=== PATIENT | female | born 1960 | race Caucasian/White ===

== ENCOUNTER 2017-09-30 08:16 | Day surgery (SDC) | payer MEDICARE ==
[~2017-09-30] VITALS: Ht 170.2 cm; Wt 114.5 kg
[~2017-09-30 08:16] MED LIST: ALLO100T30 PO; ASCO100019 PO; ASPI-614 PO; AZIT1PAC9 PO; CARV12.52 PO; CHOL5000 PO; FURO-92 PO; GABA600T14 PO; HYDR-3307 PO; LISI-167 PO; METH500T7 PO; MULT1CAP19 PO; NEBULIZER INH; PRAV40TA2 PO; SAXA1TBM3 PO; TUMERIC CURCUMIN PO
[2017-09-30] MEDS ORDERED: CARV-39 PO (08:46)
[2017-09-30] MEDS ORDERED: SODIUM CHLORIDE 0.9% 1,000 ML IV SCH (09:00)
[2017-09-30] MEDS ORDERED: CYAN25009 PO (09:01)
[2017-09-30] MEDS ORDERED: FLUT1BLS INH (09:01)
[2017-09-30] MEDS ORDERED: HYDR20TA19 PO (09:01)
[2017-09-30] MEDS ORDERED: NALO25TA PO (09:01)
[2017-09-30] MEDS ORDERED: LOVA40TA2 PO (09:01)
[2017-09-30] MEDS ORDERED: GLIP10TA13 PO (09:01)
[2017-09-30] MEDS ORDERED: FOLI-17 PO (09:01)
[2017-09-30] MEDS ORDERED: METF500T4 PO (09:01)
== END 2017-09-30 11:52 ==
LOC: CACL 08:16
PROVIDERS: ATTEND Internal Medicine Cardiovascular Disease
DX: I34.0 Nonrheumatic mitral (valve) insufficiency (principal); I27.20 Pulmonary hypertension, unspecified; Z88.6 Allergy status to analgesic agent; I10 Essential (primary) hypertension; I50.22 Chronic systolic (congestive) heart failure
CPT/HCPCS: 93312; 93321; 93325

== ENCOUNTER → 2017-10-15 | Outpatient (CLI) | payer MEDICARE ==
[~2017-10-15] MED LIST changes: +CARV-39 PO; +CYAN25009 PO; +FLUT1BLS INH; +FOLI-17 PO; +GLIP10TA13 PO; +HYDR20TA19 PO; +LOVA40TA2 PO; +METF500T4 PO; +NALO25TA PO
[2017-10-15 15:26] LABS: HEMATOCRIT 38.3 % (34.6-47.8); HEMOGLOBIN 12.3 g/dL (11.7-16.4); WHITE BLOOD COUNT 10.7 x10^3/uL (3.4-10)
== END | disposition home or self-care (01) ==
LOC: LAB 15:03
PROVIDERS: ATTEND Podiatrist Foot & Ankle Surgery
DX: L03.115 Cellulitis of right lower limb (principal); M86.171 Other acute osteomyelitis, right ankle and foot
CPT/HCPCS: 36415; 85025; 85651; 86140

== ENCOUNTER → 2017-11-06 | Outpatient (CLI) | payer MEDICARE ==
[~2017-11-06] MED LIST changes: +[UNRECOGNIZED DRUG - OTHER] INH
[2017-11-06 15:07] LABS: INTERNATIONAL NORMALIZED RATIO 1.06 (0.93-1.1)
[2017-11-06 15:13] LABS: ANION GAP 9 mmol/L (5-15); CALCIUM 8.9 mg/dL (8.5-10.1); CHLORIDE 105 mmol/L (98-107)
== END ==
LOC: STAR 13:43
PROVIDERS: ATTEND Internal Medicine Cardiovascular Disease
DX: Z01.818 Encounter for other preprocedural examination (principal); I10 Essential (primary) hypertension; I36.1 Nonrheumatic tricuspid (valve) insufficiency; E78.5 Hyperlipidemia, unspecified; Z87.891 Personal history of nicotine dependence; E11.9 Type 2 diabetes mellitus without complications
CPT/HCPCS: 36415; 80048; 83880; 85610

== ENCOUNTER 2017-11-10 10:16 | Day surgery (SDC) | payer MEDICARE ==
[2017-11-06 14:14] VITALS: BP 115/69
[~2017-11-10] VITALS: Ht 170.2 cm; Wt 114.5 kg
[2017-11-10] MEDS ORDERED: DIPHENHYDRAMINE 50 MG/ML, 1ML IVPush ONE (12:30)
[2017-11-10] MEDS ORDERED: MIDAZOLAM 1 MG/ML, 5ML ONE (12:40)
[2017-11-10] MEDS ORDERED: FENTANYL PF 100 MCG/2ML ONE (12:40)
[2017-11-10] MEDS ORDERED: LIDOCAINE 2%, 20ML ONE (12:41)
[2017-11-10] MEDS ORDERED: SODIUM CHLORIDE 0.9% IV PRN (13:30)
[2017-11-10] MEDS ORDERED: ADENOSINE IV PRN (13:30)
== END 2017-11-10 18:03 | disposition home or self-care (01) ==
LOC: CACL 10:16 → 5SO 17:35 → CACL 18:03
PROVIDERS: ATTEND Internal Medicine Cardiovascular Disease
DX: I27.0 Primary pulmonary hypertension (principal); Z79.82 Long term (current) use of aspirin; Z87.891 Personal history of nicotine dependence; E66.01 Morbid (severe) obesity due to excess calories; J44.9 Chronic obstructive pulmonary disease, unspecified
CPT/HCPCS: 93451; 93463; 99156; 99157; C1769; C1894; G0378; J1200; J2250; J3010; J3490

== ENCOUNTER 2018-02-10 18:11 | Inpatient (IN) | payer MEDICARE ==
[~2018-02-10] VITALS: Ht 170.2 cm; Wt 110.9 kg
[2018-02-10 18:47] LABS: BASOPHILS # (AUTO) 0.03 x10^3/uL (0-0.1); BASOPHILS % (AUTO) 1 % (0-1); EOSINOPHILS # (AUTO) 0.12 x10^3/uL (0-0.4); EOSINOPHILS % (AUTO) 2 % (1-7); LYMPHOCYTES # (AUTO) 0.52 x10^3/uL (1-3.4); LYMPHOCYTES % (AUTO) 8 % (22-44); MD NO; MEAN CORPUSCULAR HEMOGLOBIN 31.6 pg (27.0-34.8); MEAN CORPUSCULAR VOLUME 98.5 fL (80-100); MEAN PLATELET VOLUME 8.4 fL (7.4-10.4); MONOCYTES # (AUTO) 0.56 x10^3/uL (0.2-0.8); MONOCYTES % (AUTO) 8 % (2-9); NEUTROPHILS # (AUTO) 5.55 x10^3/uL (1.8-6.8); NEUTROPHILS % (AUTO) 82 % (42-75); PLATELET COUNT 223 x10^3/uL (130-400); RED BLOOD COUNT 2.82 x10^6/uL (3.82-5.3); RED CELL DISTRIBUTION WIDTH 19.4 % (9.6-15.2)
[2018-02-10 18:58] LABS: ALBUMIN 3.1 g/dL (3.4-5.0); ANION GAP 11 mmol/L (5-15); CALCIUM 8.3 mg/dL (8.5-10.1); CHLORIDE 114 mmol/L (98-107); CREATININE 4.86 mg/dL (0.55-1.02)
[2018-02-10 19:06] LABS: TROPONIN I 0.164 ng/mL (0.000-0.045)
[2018-02-10] MEDS ORDERED: ALBU18HF INH (19:21)
[2018-02-10] MEDS ORDERED: ASPIRIN 81 MG TABLET CHEW PO ONE (19:30)
[2018-02-10] MEDS ORDERED: FUROSEMIDE 40 MG/4 ML IVPush ONE (19:30)
[2018-02-10] MEDS ORDERED: UMEC62.5 INH (19:32)
[2018-02-10] MEDS ORDERED: TADA20TA33 PO (19:32)
[2018-02-10] MEDS ORDERED: CARV12.52 PO (19:32)
[2018-02-10] MEDS ORDERED: ASPIRIN 81 MG TABLET CHEW ONE (20:11)
[2018-02-10] MEDS ORDERED: FUROSEMIDE 20 MG/2 ML ONE (20:11)
[2018-02-10] MEDS ORDERED: POLYETHYLENE GLYCOL 17 GM PACKET PO PRN (20:30)
[2018-02-10] MEDS: FUROSEMIDE 20 MG/2 ML IV SCH (20:30)
[2018-02-10] MEDS ORDERED: BISACODYL 10 MG SUPP PR PRN (20:30)
[2018-02-10] MEDS ORDERED: ACETAMINOPHEN 325 MG TABLET PO PRN (20:30)
[2018-02-10 21:06] LABS: HEMOGLOBIN A1C 6.2 % (4.2-6.3)
[2018-02-10 21:15] VITALS: BP 109/74
[2018-02-10] MEDS ORDERED: ALBUTEROL/IPRATROPIUM 2.5MG/0.5MG, 3 ML NPPB PRN (21:30)
[2018-02-10] MEDS: LOVASTATIN 40 MG TABLET PO SCH (21:50)
[2018-02-10] MEDS: SODIUM CHLORIDE FLUSH 10ML SYR IVF SCH (21:50)
[2018-02-10] MEDS: HEPARIN 5,000 UNITS/ML, 1ML SQ SCH (21:50)
[2018-02-10] MEDS: GABAPENTIN 300 MG CAPSULE PO SCH (21:51)
[2018-02-10] MEDS: CARVEDILOL 12.5 MG TABLET PO SCH (21:51)
[2018-02-10] MEDS: INSULIN LISPRO 100 UNITS/ML, PEN SQ-INSULIN SCH (21:51)
[2018-02-10] MEDS: HYDROcodone/APAP 10/325 MG TABLET PO PRN (22:33)
[2018-02-11] VITALS (11 sets, daily range): BP systolic 81–111; BP diastolic 46–74
[2018-02-11 00:45] LABS: TROPONIN I 0.174 ng/mL (0.000-0.045)
[2018-02-11] MEDS: HEPARIN 5,000 UNITS/ML, 1ML SQ SCH ×3 (04:53→20:30)
[2018-02-11 06:45] LABS: MEAN CORPUSCULAR HEMOGLOBIN 30.8 pg (27.0-34.8); MEAN CORPUSCULAR HGB CONC 31.6 g/dL (32.4-35.8); MEAN CORPUSCULAR VOLUME 97.7 fL (80-100); MEAN PLATELET VOLUME 8.1 fL (7.4-10.4); PLATELET COUNT 222 x10^3/uL (130-400); RED BLOOD COUNT 2.63 x10^6/uL (3.82-5.3); RED CELL DISTRIBUTION WIDTH 19.4 % (9.6-15.2)
[2018-02-11 06:48] LABS: ALANINE AMINOTRANSFERASE 16 U/L (12-78); ALBUMIN 2.8 g/dL (3.4-5.0); ANION GAP 9 mmol/L (5-15); CHLORIDE 116 mmol/L (98-107); CREATININE 4.88 mg/dL (0.55-1.02)
[2018-02-11 07:12] LABS: MD YES
[2018-02-11 07:13] LABS: BASOS#(MANUAL) 0.07 x10^3/uL (0-0.1); BASOS% (MANUAL) 1 % (0-1); EOS#(MANUAL) 0.34 x10^3/uL (0.0-0.4); EOS% (MANUAL) 5 % (1-7); LYMPH#(MANUAL) 0.94 x10^3/uL (1-3.4); LYMPHS% (MANUAL) 14 % (22-44); MONOS% (MANUAL) 6 % (2-9); SEG#(MANUAL) 4.96 x10^3/uL (1.8-6.8); SEGS% (MANUAL) 74 % (42-75)
[2018-02-11 07:14] LABS: ALKALINE PHOSPHATASE 98 U/L (45-117); ANISOCYTOSIS 1+; BILIRUBIN,TOTAL 0.6 mg/dL (0.2-1.0); TOTAL PROTEIN 6.7 g/dL (6.4-8.2); TROPONIN I 0.165 ng/mL (0.000-0.045)
[2018-02-11 07:15] LABS: <PLATELET ESTIMATE> ADEQUATE; POLYCHROMASIA 1+
[2018-02-11 07:16] LABS: LARGE PLATELETS 1+
[2018-02-11] MEDS: IPRATROPIUM 0.5 MG/2.5 ML INHA NPPB SCH ×4 (07:16→21:00)
[2018-02-11] MEDS: INSULIN LISPRO 100 UNITS/ML, PEN SQ-INSULIN SCH ×4 (07:42→20:33)
[2018-02-11] MEDS: FUROSEMIDE 20 MG/2 ML IV SCH (07:48)
[2018-02-11] MEDS ORDERED: HEPARIN 5,000 UNITS/ML, 1ML SQ SCH (08:30)
[2018-02-11] MEDS: ASPIRIN 81 MG TABLET CHEW PO SCH (08:30)
[2018-02-11] MEDS: FOLIC ACID 1 MG TABLET PO SCH (08:31)
[2018-02-11] MEDS: ASCORBIC ACID 500 MG TABLET PO SCH (08:31)
[2018-02-11] MEDS: GABAPENTIN 300 MG CAPSULE PO SCH ×2 (08:31→20:31)
[2018-02-11] MEDS: ACETAMINOPHEN 325 MG TABLET PO SCH ×3 (08:31→20:30)
[2018-02-11] MEDS: CYANOCOBALAMIN 1,000 MCG TABLET PO SCH (08:31)
[2018-02-11] MEDS: SENNA/DOCUSATE TABLET PO SCH (08:32)
[2018-02-11] MEDS: SODIUM CHLORIDE FLUSH 10ML SYR IVF SCH ×2 (08:33→20:33)
[2018-02-11] MEDS: CARVEDILOL 12.5 MG TABLET PO SCH ×3 (08:38→22:27)
[2018-02-11] MEDS ORDERED: TADA20TA33 PO (08:55)
[2018-02-11] MEDS ORDERED: SODIUM CHLORIDE 77 MEQ in DEXTROSE 10% 1,000 ML IV SCH (09:00)
[2018-02-11] MEDS ORDERED: CHOLECALCIFEROL 1,000 UNIT TABLET PO SCH (09:00)
[2018-02-11 10:05] LABS: ANION GAP 11 mmol/L (5-15); CALCIUM 8.1 mg/dL (8.5-10.1); CHLORIDE 114 mmol/L (98-107); CREATININE 4.89 mg/dL (0.55-1.02); IRON LEVEL 36 mcg/dL (50-170)
[2018-02-11 10:26] LABS: HEMOGLOBIN A1C 5.9 % (4.2-6.3)
[2018-02-11 10:29] LABS: CALCIUM 8.1 mg/dL (8.5-10.1)
[2018-02-11 10:32] LABS: % IRON SATURATION 12 % (20-55); TOTAL IRON BINDING CAPACITY 290 mcg/dL (250-450)
[2018-02-11 10:36] LABS: FOLATE LEVEL > 20.0 ng/mL (3.1-17.5)
[2018-02-11 10:37] LABS: ABSOLUTE RETICS # 0.032 x10^6/uL (0.5-2.5); RED BLOOD COUNT 2.87 x10^6/uL (3.82-5.3); RETICULOCYTE COUNT % 1.12 % (0.5-1.5)
[2018-02-11 10:45] LABS: % IRON SATURATION 13 % (20-55); IRON LEVEL 36 mcg/dL (50-170)
[2018-02-11] MEDS ORDERED: INSULIN LISPRO 100 UNITS/ML, PEN LOW DOSE SS SQ-INSULIN SCH (11:00)
[2018-02-11 11:09] LABS: TOTAL IRON BINDING CAPACITY 287 mcg/dL (250-450)
[2018-02-11 12:15] LABS: CHLORIDE,URINE RANDOM 55 mmol/L; POTASSIUM,URINE RANDOM 41 mmol/L; SODIUM,URINE RANDOM 33 mmol/L
[2018-02-11 12:16] LABS: CHLORIDE,URINE RANDOM 55 mmol/L; POTASSIUM,URINE RANDOM 41 mmol/L; SODIUM,URINE RANDOM 34 mmol/L
[2018-02-11] MEDS: FLUTICASONE/VILANTEROL 200-25MCG/INH INH SCH (12:22)
[2018-02-11 12:39] LABS: OSMOLALITY,URINE 367 mOsm/kg (500-850)
[2018-02-11 12:45] LABS: MICROSCOPIC INDICATED
[2018-02-11 12:46] LABS: CULTURE INDICATED? YES
[2018-02-11] MEDS ORDERED: FUROSEMIDE 40 MG/4 ML IV SCH (17:00)
[2018-02-11] MEDS: FUROSEMIDE 40 MG/4 ML IV SCH (17:56)
[2018-02-11] MEDS: LOVASTATIN 40 MG TABLET PO SCH (20:36)
[2018-02-12] VITALS (7 sets, daily range): BP systolic 79–103; BP diastolic 47–69
[2018-02-12] MEDS: IPRATROPIUM 0.5 MG/2.5 ML INHA NPPB SCH (03:00)
[2018-02-12] MEDS: ACETAMINOPHEN 325 MG TABLET PO SCH ×4 (04:02→20:23)
[2018-02-12] MEDS: HEPARIN 5,000 UNITS/ML, 1ML SQ SCH ×3 (04:15→20:22)
[2018-02-12 05:48] LABS: BASOPHILS # (AUTO) 0.01 x10^3/uL (0-0.1); BASOPHILS % (AUTO) 0 % (0-1); EOSINOPHILS # (AUTO) 0.14 x10^3/uL (0-0.4); EOSINOPHILS % (AUTO) 2 % (1-7); LYMPHOCYTES # (AUTO) 0.48 x10^3/uL (1-3.4); LYMPHOCYTES % (AUTO) 7 % (22-44); MD NO; MEAN CORPUSCULAR HEMOGLOBIN 30.9 pg (27.0-34.8); MEAN CORPUSCULAR HGB CONC 31.3 g/dL (32.4-35.8); MEAN CORPUSCULAR VOLUME 98.6 fL (80-100); MEAN PLATELET VOLUME 8.5 fL (7.4-10.4); MONOCYTES # (AUTO) 0.59 x10^3/uL (0.2-0.8); MONOCYTES % (AUTO) 9 % (2-9); NEUTROPHILS # (AUTO) 5.45 x10^3/uL (1.8-6.8); NEUTROPHILS % (AUTO) 82 % (42-75); PLATELET COUNT 185 x10^3/uL (130-400); RED BLOOD COUNT 2.58 x10^6/uL (3.82-5.3)
[2018-02-12 05:49] LABS: INTERNATIONAL NORMALIZED RATIO 1.24 (0.93-1.1); PROTHROMBIN TIME 12.7 Seconds (9.6-11.5)
[2018-02-12 05:53] LABS: ALANINE AMINOTRANSFERASE 14 U/L (12-78); ALBUMIN 2.7 g/dL (3.4-5.0); ANION GAP 9 mmol/L (5-15); CALCIUM 7.7 mg/dL (8.5-10.1); CHLORIDE 114 mmol/L (98-107); CREATININE 5.02 mg/dL (0.55-1.02)
[2018-02-12 05:55] LABS: ALKALINE PHOSPHATASE 105 U/L (45-117); BILIRUBIN,TOTAL 0.5 mg/dL (0.2-1.0); TOTAL PROTEIN 6.9 g/dL (6.4-8.2)
[2018-02-12] MEDS: INSULIN LISPRO 100 UNITS/ML, PEN SQ-INSULIN SCH ×4 (07:00→20:23)
[2018-02-12] MEDS: FUROSEMIDE 40 MG/4 ML IV SCH ×2 (07:30→18:26)
[2018-02-12] MEDS: ASPIRIN 81 MG TABLET CHEW PO SCH (09:00)
[2018-02-12] MEDS: SENNA/DOCUSATE TABLET PO SCH (09:00)
[2018-02-12] MEDS: IRON SUCROSE COMPLEX 100MG/5ML IV SCH (10:05)
[2018-02-12] MEDS: FLUTICASONE/VILANTEROL 200-25MCG/INH INH SCH (10:08)
[2018-02-12] MEDS: SODIUM CHLORIDE FLUSH 10ML SYR IVF SCH ×2 (10:08→20:22)
[2018-02-12] MEDS: ERGOCALCIFEROL 50,000 UNIT CAPSULE PO SCH (10:11)
[2018-02-12] MEDS: CALCITRIOL 0.25 MCG CAPSULE PO SCH (10:12)
[2018-02-12] MEDS: CYANOCOBALAMIN 1,000 MCG TABLET PO SCH (10:12)
[2018-02-12] MEDS: FOLIC ACID 1 MG TABLET PO SCH (10:13)
[2018-02-12] MEDS: ASCORBIC ACID 500 MG TABLET PO SCH (10:13)
[2018-02-12] MEDS ORDERED: CARVEDILOL 6.25 MG TABLET ONE (10:17)
[2018-02-12] MEDS: CARVEDILOL 6.25 MG TABLET PO SCH ×2 (10:20→20:21)
[2018-02-12] MEDS: DARBEPOETIN 100 MCG/ML SQ SCH (10:20)
[2018-02-12] MEDS: LOVASTATIN 40 MG TABLET PO SCH (20:21)
[2018-02-12] MEDS: GABAPENTIN 300 MG CAPSULE PO SCH (20:22)
[2018-02-13 02:50] VITALS: BP 94/62
[2018-02-13] MEDS: ACETAMINOPHEN 325 MG TABLET PO SCH ×4 (03:32→19:34)
[2018-02-13] MEDS: HEPARIN 5,000 UNITS/ML, 1ML SQ SCH ×3 (04:04→20:18)
[2018-02-13 05:51] LABS: BASOPHILS # (AUTO) 0.03 x10^3/uL (0-0.1); BASOPHILS % (AUTO) 0 % (0-1); MD NO
[2018-02-13 05:54] LABS: ALANINE AMINOTRANSFERASE 14 U/L (12-78); ALBUMIN 2.6 g/dL (3.4-5.0); ANION GAP 9 mmol/L (5-15); CHLORIDE 109 mmol/L (98-107); CREATININE 3.53 mg/dL (0.55-1.02)
[2018-02-13 05:56] LABS: ALKALINE PHOSPHATASE 104 U/L (45-117); BILIRUBIN,TOTAL 0.5 mg/dL (0.2-1.0); TOTAL PROTEIN 6.7 g/dL (6.4-8.2)
[2018-02-13 05:57] LABS: EOSINOPHILS # (AUTO) 0.13 x10^3/uL (0-0.4); EOSINOPHILS % (AUTO) 2 % (1-7); LYMPHOCYTES % (AUTO) 6 % (22-44); MEAN CORPUSCULAR HEMOGLOBIN 31.8 pg (27.0-34.8); MEAN CORPUSCULAR VOLUME 99.3 fL (80-100); MEAN PLATELET VOLUME 8.7 fL (7.4-10.4); MONOCYTES # (AUTO) 0.59 x10^3/uL (0.2-0.8); MONOCYTES % (AUTO) 9 % (2-9); NEUTROPHILS # (AUTO) 5.78 x10^3/uL (1.8-6.8); NEUTROPHILS % (AUTO) 84 % (42-75); PLATELET COUNT 175 x10^3/uL (130-400); RED BLOOD COUNT 2.55 x10^6/uL (3.82-5.3); RED CELL DISTRIBUTION WIDTH 19.2 % (9.6-15.2)
[2018-02-13 06:37] VITALS: BP 78/46
[2018-02-13] MEDS: INSULIN LISPRO 100 UNITS/ML, PEN SQ-INSULIN SCH ×4 (07:00→20:55)
[2018-02-13 07:38] VITALS: BP 95/59
[2018-02-13] MEDS ORDERED: DOBUTAMINE/D5W PMX 250 ML IV SCH (08:00)
[2018-02-13] MEDS: FUROSEMIDE 40 MG/4 ML IV SCH ×2 (08:54→16:57)
[2018-02-13] MEDS: FLUTICASONE/VILANTEROL 200-25MCG/INH INH SCH (08:56)
[2018-02-13] MEDS: IRON SUCROSE COMPLEX 100MG/5ML IV SCH (08:57)
[2018-02-13] MEDS: SODIUM CHLORIDE FLUSH 10ML SYR IVF SCH ×2 (08:58→20:21)
[2018-02-13] MEDS: ASPIRIN 81 MG TABLET CHEW PO SCH (08:58)
[2018-02-13] MEDS: CARVEDILOL 6.25 MG TABLET PO SCH ×2 (08:58→20:18)
[2018-02-13] MEDS: SENNA/DOCUSATE TABLET PO SCH (09:00)
[2018-02-13] MEDS: DOBUTAMINE/D5W PMX 250 ML IV SCH ×3 (10:12→23:55)
[2018-02-13 14:45] VITALS: BP 128/67
[2018-02-13] MEDS: CYANOCOBALAMIN 1,000 MCG TABLET PO SCH (14:49)
[2018-02-13] MEDS: FOLIC ACID 1 MG TABLET PO SCH (14:49)
[2018-02-13] MEDS: ASCORBIC ACID 500 MG TABLET PO SCH (14:49)
[2018-02-13] MEDS: CALCITRIOL 0.25 MCG CAPSULE PO SCH (14:49)
[2018-02-13 16:54] VITALS: BP 128/78
[2018-02-13 19:12] VITALS: BP 116/70
[2018-02-13] MEDS: GABAPENTIN 300 MG CAPSULE PO SCH (20:18)
[2018-02-13] MEDS: LOVASTATIN 40 MG TABLET PO SCH (20:18)
[2018-02-13] MEDS: ZOLPIDEM 5MG TABLET PO PRN (22:57)
[2018-02-14 01:57] VITALS: BP 104/63
[2018-02-14] MEDS: HEPARIN 5,000 UNITS/ML, 1ML SQ SCH ×3 (05:23→21:26)
[2018-02-14] MEDS: ACETAMINOPHEN 325 MG TABLET PO SCH ×4 (05:25→21:27)
[2018-02-14 05:38] LABS: ALBUMIN 2.6 g/dL (3.4-5.0); ANION GAP 8 mmol/L (5-15); CALCIUM 8.5 mg/dL (8.5-10.1); CHLORIDE 108 mmol/L (98-107)
[2018-02-14 05:39] LABS: CREATININE 2.71 mg/dL (0.55-1.02)
[2018-02-14 05:40] LABS: BASOPHILS # (AUTO) 0.03 x10^3/uL (0-0.1); BASOPHILS % (AUTO) 0 % (0-1); EOSINOPHILS # (AUTO) 0.19 x10^3/uL (0-0.4); EOSINOPHILS % (AUTO) 2 % (1-7); LYMPHOCYTES # (AUTO) 0.64 x10^3/uL (1-3.4); LYMPHOCYTES % (AUTO) 8 % (22-44); MD NO; MEAN CORPUSCULAR HEMOGLOBIN 31.2 pg (27.0-34.8); MEAN CORPUSCULAR HGB CONC 31.6 g/dL (32.4-35.8); MEAN CORPUSCULAR VOLUME 98.8 fL (80-100); MEAN PLATELET VOLUME 8.6 fL (7.4-10.4); MONOCYTES # (AUTO) 0.88 x10^3/uL (0.2-0.8); MONOCYTES % (AUTO) 11 % (2-9); NEUTROPHILS # (AUTO) 6.33 x10^3/uL (1.8-6.8); NEUTROPHILS % (AUTO) 78 % (42-75); PLATELET COUNT 202 x10^3/uL (130-400); RED BLOOD COUNT 2.74 x10^6/uL (3.82-5.3); RED CELL DISTRIBUTION WIDTH 19.5 % (9.6-15.2)
[2018-02-14] MEDS: DOBUTAMINE/D5W PMX 250 ML IV SCH ×3 (06:34→21:24)
[2018-02-14 07:30] VITALS: BP 134/85
[2018-02-14] MEDS: INSULIN LISPRO 100 UNITS/ML, PEN SQ-INSULIN SCH ×4 (07:40→21:27)
[2018-02-14] MEDS: FUROSEMIDE 40 MG/4 ML IV SCH ×2 (07:52→16:49)
[2018-02-14] MEDS ORDERED: DOBUTAMINE/D5W PMX 250 ML IV SCH (10:00)
[2018-02-14] MEDS: FOLIC ACID 1 MG TABLET PO SCH (12:23)
[2018-02-14] MEDS: ASPIRIN 81 MG TABLET CHEW PO SCH (12:23)
[2018-02-14] MEDS: CALCITRIOL 0.25 MCG CAPSULE PO SCH (12:23)
[2018-02-14] MEDS: ASCORBIC ACID 500 MG TABLET PO SCH (12:23)
[2018-02-14] MEDS: CYANOCOBALAMIN 1,000 MCG TABLET PO SCH (12:24)
[2018-02-14] MEDS: SENNA/DOCUSATE TABLET PO SCH (12:24)
[2018-02-14] MEDS: CARVEDILOL 6.25 MG TABLET PO SCH ×2 (12:24→21:26)
[2018-02-14] MEDS: IRON SUCROSE COMPLEX 100MG/5ML IV SCH (12:24)
[2018-02-14] MEDS: SODIUM CHLORIDE FLUSH 10ML SYR IVF SCH ×2 (12:25→21:26)
[2018-02-14 12:26] VITALS: BP 131/83
[2018-02-14] MEDS: FLUTICASONE/VILANTEROL 200-25MCG/INH INH SCH (12:29)
[2018-02-14] MEDS: ONDANSETRON ODT 4 MG PO PRN (13:11)
[2018-02-14] MEDS: HYDROcodone/APAP 10/325 MG TABLET PO PRN (13:11)
[2018-02-14 13:44] VITALS: BP 107/73
[2018-02-14] MEDS: [UNRECOGNIZED DRUG - OTHER] HOMEMEDPO SCH (14:37)
[2018-02-14 20:38] VITALS: BP 96/58
[2018-02-14] MEDS: LOVASTATIN 40 MG TABLET PO SCH (21:27)
[2018-02-14] MEDS: GABAPENTIN 300 MG CAPSULE PO SCH (21:27)
[2018-02-14] MEDS: ZOLPIDEM 5MG TABLET PO PRN (22:56)
[2018-02-15 00:43] VITALS: BP 109/71
[2018-02-15] MEDS: ACETAMINOPHEN 325 MG TABLET PO SCH ×4 (03:08→21:05)
[2018-02-15] MEDS: DOBUTAMINE/D5W PMX 250 ML IV SCH ×3 (03:09→17:52)
[2018-02-15] MEDS: HEPARIN 5,000 UNITS/ML, 1ML SQ SCH ×3 (05:34→21:04)
[2018-02-15 05:39] LABS: BASOPHILS # (AUTO) 0.03 x10^3/uL (0-0.1); BASOPHILS % (AUTO) 0 % (0-1); EOSINOPHILS # (AUTO) 0.21 x10^3/uL (0-0.4); EOSINOPHILS % (AUTO) 3 % (1-7); LYMPHOCYTES # (AUTO) 0.53 x10^3/uL (1-3.4); LYMPHOCYTES % (AUTO) 6 % (22-44); MD NO; MEAN CORPUSCULAR HEMOGLOBIN 30.7 pg (27.0-34.8); MEAN CORPUSCULAR HGB CONC 30.9 g/dL (32.4-35.8); MEAN CORPUSCULAR VOLUME 99.2 fL (80-100); MEAN PLATELET VOLUME 8.2 fL (7.4-10.4); MONOCYTES % (AUTO) 12 % (2-9); NEUTROPHILS # (AUTO) 6.71 x10^3/uL (1.8-6.8); NEUTROPHILS % (AUTO) 79 % (42-75); PLATELET COUNT 215 x10^3/uL (130-400); RED BLOOD COUNT 2.68 x10^6/uL (3.82-5.3); RED CELL DISTRIBUTION WIDTH 19.7 % (9.6-15.2)
[2018-02-15 05:53] LABS: ALBUMIN 2.5 g/dL (3.4-5.0); ANION GAP 7 mmol/L (5-15); CALCIUM 8.8 mg/dL (8.5-10.1); CHLORIDE 106 mmol/L (98-107); CREATININE 2.01 mg/dL (0.55-1.02)
[2018-02-15 06:47] VITALS: BP 122/75
[2018-02-15] MEDS: INSULIN LISPRO 100 UNITS/ML, PEN SQ-INSULIN SCH ×4 (07:00→21:07)
[2018-02-15] MEDS: FOLIC ACID 1 MG TABLET PO SCH (09:00)
[2018-02-15] MEDS: CYANOCOBALAMIN 1,000 MCG TABLET PO SCH (09:00)
[2018-02-15] MEDS: SENNA/DOCUSATE TABLET PO SCH (09:00)
[2018-02-15] MEDS: ASCORBIC ACID 500 MG TABLET PO SCH (09:00)
[2018-02-15] MEDS: [UNRECOGNIZED DRUG - OTHER] HOMEMEDPO SCH (09:00)
[2018-02-15] MEDS: CALCITRIOL 0.25 MCG CAPSULE PO SCH (09:00)
[2018-02-15] MEDS: CARVEDILOL 6.25 MG TABLET PO SCH ×2 (09:08→21:04)
[2018-02-15] MEDS: ONDANSETRON ODT 4 MG PO PRN (10:39)
[2018-02-15] MEDS: FLUTICASONE/VILANTEROL 200-25MCG/INH INH SCH (13:33)
[2018-02-15] MEDS: FUROSEMIDE 40 MG/4 ML IV SCH ×2 (13:38→21:03)
[2018-02-15 13:39] VITALS: BP 121/75
[2018-02-15] MEDS: IRON SUCROSE COMPLEX 100MG/5ML IV SCH (13:39)
[2018-02-15] MEDS: SODIUM CHLORIDE FLUSH 10ML SYR IVF SCH ×2 (13:39→21:05)
[2018-02-15] MEDS: ASPIRIN 81 MG TABLET CHEW PO SCH (13:39)
[2018-02-15 13:50] VITALS: BP 113/72
[2018-02-15] MEDS ORDERED: PROCHLORPERAZINE 5 MG/ML, 2ML IM PRN (14:00)
[2018-02-15 18:47] VITALS: BP 102/63
[2018-02-15] MEDS: GABAPENTIN 300 MG CAPSULE PO SCH (21:04)
[2018-02-15] MEDS: LOVASTATIN 40 MG TABLET PO SCH (21:04)
[2018-02-15 22:20] VITALS: BP 106/57
[2018-02-16] MEDS: ZOLPIDEM 5MG TABLET PO PRN ×2 (00:21→22:16)
[2018-02-16] MEDS: DOBUTAMINE/D5W PMX 250 ML IV SCH ×4 (00:25→21:25)
[2018-02-16 04:01] VITALS: BP 131/83
[2018-02-16] MEDS: ACETAMINOPHEN 325 MG TABLET PO SCH ×4 (04:01→21:10)
[2018-02-16] MEDS: HEPARIN 5,000 UNITS/ML, 1ML SQ SCH ×3 (05:48→21:09)
[2018-02-16 05:53] LABS: ALBUMIN 2.7 g/dL (3.4-5.0); ANION GAP 7 mmol/L (5-15); CALCIUM 8.6 mg/dL (8.5-10.1); CHLORIDE 102 mmol/L (98-107)
[2018-02-16 05:59] LABS: CREATININE 1.85 mg/dL (0.55-1.02)
[2018-02-16] MEDS: INSULIN LISPRO 100 UNITS/ML, PEN SQ-INSULIN SCH ×4 (07:00→21:00)
[2018-02-16 07:40] VITALS: BP 114/75
[2018-02-16] MEDS: FUROSEMIDE 40 MG/4 ML IV SCH ×2 (08:33→17:34)
[2018-02-16] MEDS: IRON SUCROSE COMPLEX 100MG/5ML IV SCH (08:33)
[2018-02-16] MEDS: CALCITRIOL 0.25 MCG CAPSULE PO SCH (08:34)
[2018-02-16] MEDS: FOLIC ACID 1 MG TABLET PO SCH (08:34)
[2018-02-16] MEDS: CARVEDILOL 6.25 MG TABLET PO SCH ×2 (08:34→21:09)
[2018-02-16] MEDS: SENNA/DOCUSATE TABLET PO SCH ×2 (08:34→08:46)
[2018-02-16] MEDS: ASPIRIN 81 MG TABLET CHEW PO SCH (08:34)
[2018-02-16] MEDS: ASCORBIC ACID 500 MG TABLET PO SCH (08:35)
[2018-02-16] MEDS: CYANOCOBALAMIN 1,000 MCG TABLET PO SCH (08:35)
[2018-02-16] MEDS: FLUTICASONE/VILANTEROL 200-25MCG/INH INH SCH (08:35)
[2018-02-16] MEDS: SODIUM CHLORIDE FLUSH 10ML SYR IVF SCH ×2 (08:51→21:09)
[2018-02-16] MEDS: [UNRECOGNIZED DRUG - OTHER] HOMEMEDPO SCH (09:30)
[2018-02-16] MEDS: MAGNESIUM OXIDE 400 MG TABLET PO SCH ×2 (12:14→21:10)
[2018-02-16] MEDS: POTASSIUM CHLORIDE 20 MEQ TAB.ER.PRT PO SCH ×2 (12:14→17:35)
[2018-02-16 14:05] VITALS: BP 120/79
[2018-02-16 17:30] VITALS: BP 128/78
[2018-02-16 20:04] VITALS: BP 115/75
[2018-02-16] MEDS: LOVASTATIN 40 MG TABLET PO SCH (21:00)
[2018-02-16] MEDS: GABAPENTIN 300 MG CAPSULE PO SCH (21:10)
[2018-02-17 00:54] VITALS: BP 120/78
[2018-02-17] MEDS: ACETAMINOPHEN 325 MG TABLET PO SCH ×4 (03:55→20:54)
[2018-02-17] MEDS: DOBUTAMINE/D5W PMX 250 ML IV SCH ×2 (03:55→13:51)
[2018-02-17] MEDS: HEPARIN 5,000 UNITS/ML, 1ML SQ SCH ×3 (06:42→21:01)
[2018-02-17] MEDS: INSULIN LISPRO 100 UNITS/ML, PEN SQ-INSULIN SCH ×4 (07:00→20:53)
[2018-02-17] MEDS: FUROSEMIDE 40 MG/4 ML IV SCH (07:37)
[2018-02-17 07:44] VITALS: BP 121/79
[2018-02-17 08:49] LABS: ANION GAP 9 mmol/L (5-15); CHLORIDE 103 mmol/L (98-107); CREATININE 2.53 mg/dL (0.55-1.02)
[2018-02-17] MEDS: FLUTICASONE/VILANTEROL 200-25MCG/INH INH SCH (08:57)
[2018-02-17] MEDS: CYANOCOBALAMIN 1,000 MCG TABLET PO SCH (08:57)
[2018-02-17] MEDS: ASCORBIC ACID 500 MG TABLET PO SCH (08:57)
[2018-02-17] MEDS: ASPIRIN 81 MG TABLET CHEW PO SCH (08:57)
[2018-02-17] MEDS: CALCITRIOL 0.25 MCG CAPSULE PO SCH (08:57)
[2018-02-17] MEDS: SODIUM CHLORIDE FLUSH 10ML SYR IVF SCH ×2 (08:57→20:55)
[2018-02-17] MEDS: [UNRECOGNIZED DRUG - OTHER] HOMEMEDPO SCH (08:58)
[2018-02-17] MEDS: CARVEDILOL 6.25 MG TABLET PO SCH ×2 (08:58→20:55)
[2018-02-17] MEDS: FOLIC ACID 1 MG TABLET PO SCH (08:58)
[2018-02-17] MEDS: SENNA/DOCUSATE TABLET PO SCH (08:58)
[2018-02-17] MEDS: MAGNESIUM OXIDE 400 MG TABLET PO SCH ×2 (08:58→20:54)
[2018-02-17] MEDS: POTASSIUM CHLORIDE 20 MEQ TAB.ER.PRT PO SCH ×2 (08:58→17:02)
[2018-02-17] MEDS: HYDROcodone/APAP 10/325 MG TABLET PO PRN (17:41)
[2018-02-17] MEDS ORDERED: DOBUTAMINE/D5W PMX 250 ML IV SCH (18:00)
[2018-02-17] MEDS: GABAPENTIN 300 MG CAPSULE PO SCH (20:54)
[2018-02-17] MEDS: LOVASTATIN 40 MG TABLET PO SCH (21:01)
[2018-02-17 21:15] VITALS: BP 118/79
[2018-02-18 00:04] VITALS: BP 102/60
[2018-02-18] MEDS: ZOLPIDEM 5MG TABLET PO PRN (01:31)
[2018-02-18] MEDS: DOBUTAMINE/D5W PMX 250 ML IV SCH (01:32)
[2018-02-18] MEDS: ACETAMINOPHEN 325 MG TABLET PO SCH ×4 (03:18→23:08)
[2018-02-18 05:36] LABS: CHLORIDE 104 mmol/L (98-107)
[2018-02-18] MEDS: HEPARIN 5,000 UNITS/ML, 1ML SQ SCH ×3 (05:44→21:01)
[2018-02-18 05:53] LABS: ANION GAP 8 mmol/L (5-15); CALCIUM 8.9 mg/dL (8.5-10.1); CREATININE 2.64 mg/dL (0.55-1.02)
[2018-02-18 08:15] VITALS: BP 138/85
[2018-02-18] MEDS: FUROSEMIDE 40 MG/4 ML IV SCH ×3 (08:23→21:00)
[2018-02-18] MEDS: CALCITRIOL 0.25 MCG CAPSULE PO SCH (08:23)
[2018-02-18] MEDS: POTASSIUM CHLORIDE 20 MEQ TAB.ER.PRT PO SCH ×2 (08:23→16:42)
[2018-02-18] MEDS: INSULIN LISPRO 100 UNITS/ML, PEN SQ-INSULIN SCH ×4 (08:23→21:06)
[2018-02-18] MEDS: ASPIRIN 81 MG TABLET CHEW PO SCH (08:24)
[2018-02-18] MEDS: ASCORBIC ACID 500 MG TABLET PO SCH (08:24)
[2018-02-18] MEDS: MAGNESIUM OXIDE 400 MG TABLET PO SCH ×2 (08:24→21:01)
[2018-02-18] MEDS: SODIUM CHLORIDE FLUSH 10ML SYR IVF SCH ×2 (08:25→21:10)
[2018-02-18] MEDS: CARVEDILOL 6.25 MG TABLET PO SCH ×2 (08:25→21:08)
[2018-02-18] MEDS: [UNRECOGNIZED DRUG - OTHER] HOMEMEDPO SCH (08:26)
[2018-02-18] MEDS: FOLIC ACID 1 MG TABLET PO SCH (08:27)
[2018-02-18] MEDS: CYANOCOBALAMIN 1,000 MCG TABLET PO SCH (08:29)
[2018-02-18] MEDS: FLUTICASONE/VILANTEROL 200-25MCG/INH INH SCH (08:31)
[2018-02-18] MEDS: SENNA/DOCUSATE TABLET PO SCH (11:22)
[2018-02-18 13:05] VITALS: BP 105/72
[2018-02-18] MEDS: HYDROcodone/APAP 10/325 MG TABLET PO PRN (16:42)
[2018-02-18] MEDS: GABAPENTIN 300 MG CAPSULE PO SCH (21:00)
[2018-02-18] MEDS: LOVASTATIN 40 MG TABLET PO SCH (21:01)
[2018-02-19 03:50] VITALS: BP 118/82
[2018-02-19 05:25] LABS: ANION GAP 10 mmol/L (5-15); CALCIUM 9.2 mg/dL (8.5-10.1); CHLORIDE 106 mmol/L (98-107); CREATININE 2.99 mg/dL (0.55-1.02)
[2018-02-19] MEDS: ACETAMINOPHEN 325 MG TABLET PO SCH ×4 (05:28→23:53)
[2018-02-19] MEDS: HEPARIN 5,000 UNITS/ML, 1ML SQ SCH ×3 (05:28→20:20)
[2018-02-19] MEDS: INSULIN LISPRO 100 UNITS/ML, PEN SQ-INSULIN SCH ×4 (07:00→20:19)
[2018-02-19 07:28] VITALS: BP 112/75
[2018-02-19] MEDS: [UNRECOGNIZED DRUG - OTHER] HOMEMEDPO SCH (09:00)
[2018-02-19] MEDS: SODIUM CHLORIDE FLUSH 10ML SYR IVF SCH ×2 (09:03→20:16)
[2018-02-19] MEDS: ERGOCALCIFEROL 50,000 UNIT CAPSULE PO SCH (09:03)
[2018-02-19] MEDS: FLUTICASONE/VILANTEROL 200-25MCG/INH INH SCH (09:03)
[2018-02-19] MEDS: FUROSEMIDE 80 MG TABLET PO SCH (09:04)
[2018-02-19] MEDS: CYANOCOBALAMIN 1,000 MCG TABLET PO SCH (09:04)
[2018-02-19] MEDS: CALCITRIOL 0.25 MCG CAPSULE PO SCH (09:04)
[2018-02-19] MEDS: FOLIC ACID 1 MG TABLET PO SCH (09:04)
[2018-02-19] MEDS: ASPIRIN 81 MG TABLET CHEW PO SCH (09:04)
[2018-02-19] MEDS: MAGNESIUM OXIDE 400 MG TABLET PO SCH ×2 (09:04→20:15)
[2018-02-19] MEDS: ASCORBIC ACID 500 MG TABLET PO SCH (09:04)
[2018-02-19] MEDS: CARVEDILOL 6.25 MG TABLET PO SCH ×2 (09:04→20:15)
[2018-02-19] MEDS: DARBEPOETIN 100 MCG/ML SQ SCH (09:05)
[2018-02-19] MEDS: SENNA/DOCUSATE TABLET PO SCH (09:05)
[2018-02-19] MEDS: HYDROcodone/APAP 10/325 MG TABLET PO PRN (12:56)
[2018-02-19 14:03] VITALS: BP 95/64
[2018-02-19 19:54] VITALS: BP 105/68
[2018-02-19] MEDS: GABAPENTIN 300 MG CAPSULE PO SCH (20:15)
[2018-02-19] MEDS: LOVASTATIN 40 MG TABLET PO SCH (20:15)
[2018-02-19] MEDS: ZOLPIDEM 5MG TABLET PO PRN (23:53)
[2018-02-20 04:16] VITALS: BP 114/73
[2018-02-20] MEDS: HEPARIN 5,000 UNITS/ML, 1ML SQ SCH ×2 (06:35→14:00)
[2018-02-20] MEDS: INSULIN LISPRO 100 UNITS/ML, PEN SQ-INSULIN SCH ×2 (07:00→12:24)
[2018-02-20 07:18] VITALS: BP 123/84
[2018-02-20] MEDS: CARVEDILOL 6.25 MG TABLET PO SCH (08:47)
[2018-02-20] MEDS: MAGNESIUM OXIDE 400 MG TABLET PO SCH (08:48)
[2018-02-20] MEDS: CYANOCOBALAMIN 1,000 MCG TABLET PO SCH (08:48)
[2018-02-20] MEDS: CALCITRIOL 0.25 MCG CAPSULE PO SCH (08:48)
[2018-02-20] MEDS: ASPIRIN 81 MG TABLET CHEW PO SCH (08:48)
[2018-02-20] MEDS: ASCORBIC ACID 500 MG TABLET PO SCH (08:48)
[2018-02-20] MEDS: FUROSEMIDE 80 MG TABLET PO SCH (08:49)
[2018-02-20] MEDS: ACETAMINOPHEN 325 MG TABLET PO SCH (08:49)
[2018-02-20 08:50] LABS: ANION GAP 9 mmol/L (5-15); CALCIUM 9.4 mg/dL (8.5-10.1); CHLORIDE 107 mmol/L (98-107); CREATININE 2.98 mg/dL (0.55-1.02)
[2018-02-20] MEDS: SENNA/DOCUSATE TABLET PO SCH (08:50)
[2018-02-20] MEDS: FOLIC ACID 1 MG TABLET PO SCH (08:50)
[2018-02-20] MEDS: FLUTICASONE/VILANTEROL 200-25MCG/INH INH SCH (08:50)
[2018-02-20] MEDS: [UNRECOGNIZED DRUG - OTHER] HOMEMEDPO SCH (08:54)
[2018-02-20] MEDS: SODIUM CHLORIDE FLUSH 10ML SYR IVF SCH (08:54)
[2018-02-20] MEDS ORDERED: SPIR25TA PO (10:27)
[2018-02-20] MEDS ORDERED: CARV6.2512 PO (10:27)
[2018-02-20] MEDS ORDERED: MAGN400T26 PO (10:27)
[2018-02-20] MEDS ORDERED: GABA300C10 PO (10:27)
[2018-02-20] MEDS ORDERED: FURO80TA3 PO (10:27)
[2018-02-20] MEDS ORDERED: CALC0.25 PO (10:27)
[2018-02-20 13:05] VITALS: BP 112/77
== END 2018-02-20 15:10 | DRG 291 ==
LOC: ED 18:40 → EDIP 20:23 → 5SO 21:00
PROVIDERS: ADMIT Hospitalist; ATTEND Hospitalist
PROC: 5A09357 Assistance with Respiratory Ventilation, Less than 24 Consecutive Hours, Continuous Positive Airway Pressure (ICD-10-PCS; 2018-02-11)
PROC: 02HV33Z Insertion of Infusion Device into Superior Vena Cava, Percutaneous Approach (ICD-10-PCS; principal; 2018-02-12)
PROC: B548ZZA Ultrasonography of Superior Vena Cava, Guidance (ICD-10-PCS; 2018-02-12)
PROC: 5A09357 Assistance with Respiratory Ventilation, Less than 24 Consecutive Hours, Continuous Positive Airway Pressure (ICD-10-PCS; 2018-02-12)
PROC: 5A1D70Z Performance of Urinary Filtration, Intermittent, Less than 6 Hours Per Day (ICD-10-PCS; 2018-02-12)
PROC: 5A09357 Assistance with Respiratory Ventilation, Less than 24 Consecutive Hours, Continuous Positive Airway Pressure (ICD-10-PCS; 2018-02-13)
PROC: 5A1D70Z Performance of Urinary Filtration, Intermittent, Less than 6 Hours Per Day (ICD-10-PCS; 2018-02-13)
PROC: 5A09457 Assistance with Respiratory Ventilation, 24-96 Consecutive Hours, Continuous Positive Airway Pressure (ICD-10-PCS; 2018-02-14)
PROC: 5A1D70Z Performance of Urinary Filtration, Intermittent, Less than 6 Hours Per Day (ICD-10-PCS; 2018-02-14)
PROC: 5A1D70Z Performance of Urinary Filtration, Intermittent, Less than 6 Hours Per Day (ICD-10-PCS; 2018-02-15)
DX: I13.0 Hypertensive heart and chronic kidney disease with heart failure and stage 1 through stage 4 chronic kidney disease, or unspecified chronic kidney disease (principal); I50.43 Acute on chronic combined systolic (congestive) and diastolic (congestive) heart failure; N17.0 Acute kidney failure with tubular necrosis; E11.21 Type 2 diabetes mellitus with diabetic nephropathy; E87.2 Acidosis; J96.10 Chronic respiratory failure, unspecified whether with hypoxia or hypercapnia; E11.22 Type 2 diabetes mellitus with diabetic chronic kidney disease; F11.20 Opioid dependence, uncomplicated; E44.1 Mild protein-calorie malnutrition; Z68.41 Body mass index [BMI] 40.0-44.9, adult; J98.11 Atelectasis; I42.9 Cardiomyopathy, unspecified; E11.621 Type 2 diabetes mellitus with foot ulcer; I27.20 Pulmonary hypertension, unspecified; L40.9 Psoriasis, unspecified; J44.9 Chronic obstructive pulmonary disease, unspecified; D50.9 Iron deficiency anemia, unspecified; E66.01 Morbid (severe) obesity due to excess calories; E78.5 Hyperlipidemia, unspecified; E83.51 Hypocalcemia; E87.5 Hyperkalemia; G47.00 Insomnia, unspecified; G47.30 Sleep apnea, unspecified; G89.29 Other chronic pain; I25.2 Old myocardial infarction; I25.10 Atherosclerotic heart disease of native coronary artery without angina pectoris; I27.81 Cor pulmonale (chronic); I27.29 Other secondary pulmonary hypertension; K21.9 Gastro-esophageal reflux disease without esophagitis; L97.509 Non-pressure chronic ulcer of other part of unspecified foot with unspecified severity; M10.9 Gout, unspecified; Z82.49 Family history of ischemic heart disease and other diseases of the circulatory system; Z83.3 Family history of diabetes mellitus; Z87.891 Personal history of nicotine dependence; Z95.5 Presence of coronary angioplasty implant and graft; Z99.81 Dependence on supplemental oxygen; Z79.82 Long term (current) use of aspirin; Z79.899 Other long term (current) drug therapy; I50.82 Biventricular heart failure; N18.3 Chronic kidney disease, stage 3 (moderate)
CPT/HCPCS: 36415; 36556; 36600; 71045; 76770; 76937; 77001; 80048; 80053; 80069; 80074; 81001; 82040; 82274; 82306; 82310; 82330; 82436; 82607; 82728; 82746; 82803; 82962; 83036; 83540; 83550; 83735; 83880; 83935; 83970; 84100; 84132; 84133; 84300; 84484; 84550; 85025; 85045; 85610; 85730; 86480; 86706; 87086; 87205; 93005; 93970; 94640; 94660; 99285; C1894; C8929; J0881; J1644; J1756; J1940; J7644; Q0162; C1751; J0780; J1250; J1642; J1815

== ENCOUNTER 2018-03-25 13:27 | Inpatient (IN) | payer MEDICARE, OTHER ==
[~2018-03-25] VITALS: Ht 170.2 cm; Wt 74.3 kg
[~2018-03-25 13:27] MED LIST changes: +ALBU18HF INH; +CALC0.25 PO; +CARV6.2512 PO; +FURO80TA3 PO; +GABA300C10 PO; +MAGN400T26 PO; +SPIR25TA PO; +TADA20TA33 PO; +UMEC62.5 INH
[2018-03-25] MEDS ORDERED: CEFTRIAXONE PMX 1GM/50ML 50 ML ONE (13:58)
[2018-03-25] MEDS ORDERED: SODIUM CHLORIDE FLUSH 10ML SYR IVF ONE (14:00)
[2018-03-25] MEDS ORDERED: CEFTRIAXONE PMX 1GM/50ML 50 ML IVPB ONE (14:00)
[2018-03-25 14:27] LABS: BASOPHILS % (AUTO) 0 % (0-1); EOSINOPHILS # (AUTO) 0.24 x10^3/uL (0-0.4); EOSINOPHILS % (AUTO) 3 % (1-7); LYMPHOCYTES # (AUTO) 0.51 x10^3/uL (1-3.4); LYMPHOCYTES % (AUTO) 6 % (22-44); MD NO; MEAN CORPUSCULAR HEMOGLOBIN 31.6 pg (27.0-34.8); MEAN CORPUSCULAR HGB CONC 31.4 g/dL (32.4-35.8); MEAN CORPUSCULAR VOLUME 100.5 fL (80-100); MEAN PLATELET VOLUME 9.3 fL (7.4-10.4); MONOCYTES # (AUTO) 0.52 x10^3/uL (0.2-0.8); MONOCYTES % (AUTO) 6 % (2-9); NEUTROPHILS # (AUTO) 7.89 x10^3/uL (1.8-6.8); NEUTROPHILS % (AUTO) 86 % (42-75); PLATELET COUNT 215 x10^3/uL (130-400); RED BLOOD COUNT 3.05 x10^6/uL (3.82-5.3); RED CELL DISTRIBUTION WIDTH 19.7 % (9.6-15.2)
[2018-03-25] MEDS ORDERED: HYDR20TA19 PO (14:32)
[2018-03-25 14:35] LABS: INTERNATIONAL NORMALIZED RATIO 1.19 (0.93-1.1); PROTHROMBIN TIME 12.3 Seconds (9.6-11.5)
[2018-03-25] MEDS ORDERED: GLIP-164 PO (14:35)
[2018-03-25] MEDS ORDERED: AMOX1TAB64 PO (14:37)
[2018-03-25 14:39] LABS: ALBUMIN 2.7 g/dL (3.4-5.0); ANION GAP 12 mmol/L (5-15); CALCIUM 9.1 mg/dL (8.5-10.1); CHLORIDE 104 mmol/L (98-107); CREATININE 2.87 mg/dL (0.55-1.02)
[2018-03-25] MEDS ORDERED: DOCUSATE 100 MG CAPSULE PO PRN (15:30)
[2018-03-25] MEDS ORDERED: ONDANSETRON 2MG/ML, 2ML IVPush PRN (15:30)
[2018-03-25] MEDS ORDERED: SODIUM CHLORIDE FLUSH 10ML SYR IVF PRN (15:30)
[2018-03-25] MEDS ORDERED: BISACODYL 10 MG SUPP PR PRN (15:30)
[2018-03-25] MEDS ORDERED: ACETAMINOPHEN 325 MG TABLET PO PRN (15:30)
[2018-03-25] MEDS ORDERED: POLYETHYLENE GLYCOL 17 GM PACKET PO PRN (15:30)
[2018-03-25] MEDS ORDERED: LABETALOL 5MG/ML, 20ML IVPush PRN (15:30)
[2018-03-25] MEDS ORDERED: VANCOMYCIN PER PHARMACY MC PRN (16:00)
[2018-03-25] MEDS ORDERED: ALBUTEROL SULFATE 2.5 MG/3 ML NPPB PRN (17:00)
[2018-03-25] MEDS ORDERED: PHARMACOKINETIC CONSULTATION MC ONE (17:30)
[2018-03-25] MEDS ORDERED: PHARMACOKINETIC MONITORING MC PRN (17:30)
[2018-03-25] MEDS: HEPARIN 5,000 UNITS/ML, 1ML SQ SCH (18:19)
[2018-03-25] MEDS: FUROSEMIDE 40 MG TABLET PO SCH ×2 (18:20→20:57)
[2018-03-25 18:27] VITALS: BP 111/77
[2018-03-25] MEDS ORDERED: VANCOMYCIN 2,000 MG in SODIUM CHLORIDE 0.9% 500 ML IV ONE (18:30)
[2018-03-25 19:38] VITALS: BP 107/74
[2018-03-25] MEDS: GABAPENTIN 300 MG CAPSULE PO SCH (20:57)
[2018-03-25] MEDS: AMPICILLIN/SULBACTAM 3 GM in SODIUM CHLORIDE 0.9% 100 ML IV SCH (20:57)
[2018-03-25] MEDS: CARVEDILOL 6.25 MG TABLET PO SCH (20:58)
[2018-03-25] MEDS: LOVASTATIN 40 MG TABLET PO SCH (21:00)
[2018-03-25] MEDS: HYDROCODONE BITARTRATE 20 MG HOMEMEDPO SCH (21:00)
[2018-03-25] MEDS: SODIUM CHLORIDE FLUSH 10ML SYR IVF SCH (21:00)
[2018-03-26] MEDS: AMPICILLIN/SULBACTAM 3 GM in SODIUM CHLORIDE 0.9% 100 ML IV SCH ×4 (01:16→20:18)
[2018-03-26 01:33] VITALS: BP 95/56
[2018-03-26 05:12] LABS: BASOPHILS # (AUTO) 0.04 x10^3/uL (0-0.1); BASOPHILS % (AUTO) 1 % (0-1); EOSINOPHILS # (AUTO) 0.27 x10^3/uL (0-0.4); EOSINOPHILS % (AUTO) 3 % (1-7); LYMPHOCYTES # (AUTO) 0.47 x10^3/uL (1-3.4); LYMPHOCYTES % (AUTO) 6 % (22-44); MD NO; MEAN CORPUSCULAR HEMOGLOBIN 31.5 pg (27.0-34.8); MEAN CORPUSCULAR HGB CONC 31.3 g/dL (32.4-35.8); MEAN CORPUSCULAR VOLUME 100.7 fL (80-100); MEAN PLATELET VOLUME 8.3 fL (7.4-10.4); MONOCYTES # (AUTO) 0.73 x10^3/uL (0.2-0.8); MONOCYTES % (AUTO) 9 % (2-9); NEUTROPHILS # (AUTO) 6.87 x10^3/uL (1.8-6.8); NEUTROPHILS % (AUTO) 82 % (42-75); PLATELET COUNT 222 x10^3/uL (130-400); RED BLOOD COUNT 2.82 x10^6/uL (3.82-5.3); RED CELL DISTRIBUTION WIDTH 19.5 % (9.6-15.2)
[2018-03-26 05:23] LABS: ANION GAP 11 mmol/L (5-15); CALCIUM 8.7 mg/dL (8.5-10.1); CHLORIDE 105 mmol/L (98-107); CREATININE 3.04 mg/dL (0.55-1.02)
[2018-03-26] MEDS: HEPARIN 5,000 UNITS/ML, 1ML SQ SCH ×3 (05:32→23:00)
[2018-03-26 06:29] VITALS: BP 105/69
[2018-03-26] MEDS: GLIPizide ER 5 MG TABLET PO SCH (08:00)
[2018-03-26] MEDS: TEMPLATE NON-FORMULARY MED. (Umeclidinium Bromide (Incruse Ellipta) 1 PUFF) INH SCH (09:00)
[2018-03-26] MEDS: TADALAFIL 20 MG HOMEMEDPO SCH (09:00)
[2018-03-26] MEDS: FLUTICASONE/VILANTEROL 200-25MCG/INH INH SCH (09:00)
[2018-03-26] MEDS: CARVEDILOL 6.25 MG TABLET PO SCH ×2 (09:06→20:19)
[2018-03-26] MEDS: ALLOPURINOL 100 MG TABLET PO SCH (09:06)
[2018-03-26] MEDS: ASPIRIN 81 MG TABLET CHEW PO SCH (09:06)
[2018-03-26] MEDS: FOLIC ACID 1 MG TABLET PO SCH (09:06)
[2018-03-26] MEDS: FUROSEMIDE 40 MG TABLET PO SCH ×3 (09:07→20:18)
[2018-03-26] MEDS: SODIUM CHLORIDE FLUSH 10ML SYR IVF SCH ×2 (09:11→20:19)
[2018-03-26 14:00] VITALS: BP 104/70
[2018-03-26 19:58] VITALS: BP 120/84
[2018-03-26] MEDS: GABAPENTIN 300 MG CAPSULE PO SCH (20:18)
[2018-03-26] MEDS: LOVASTATIN 40 MG TABLET PO SCH (20:18)
[2018-03-26] MEDS: HYDROCODONE BITARTRATE 20 MG HOMEMEDPO SCH (20:19)
[2018-03-27 01:40] VITALS: BP 128/91
[2018-03-27] MEDS: AMPICILLIN/SULBACTAM 3 GM in SODIUM CHLORIDE 0.9% 100 ML IV SCH ×3 (01:50→20:45)
[2018-03-27 05:41] LABS: BASOPHILS # (AUTO) 0.05 x10^3/uL (0-0.1); BASOPHILS % (AUTO) 1 % (0-1); EOSINOPHILS # (AUTO) 0.24 x10^3/uL (0-0.4); EOSINOPHILS % (AUTO) 3 % (1-7); LYMPHOCYTES % (AUTO) 5 % (22-44); MD NO; MEAN CORPUSCULAR HEMOGLOBIN 31.2 pg (27.0-34.8); MEAN CORPUSCULAR HGB CONC 31.3 g/dL (32.4-35.8); MEAN CORPUSCULAR VOLUME 99.7 fL (80-100); MEAN PLATELET VOLUME 8.6 fL (7.4-10.4); MONOCYTES # (AUTO) 0.66 x10^3/uL (0.2-0.8); MONOCYTES % (AUTO) 9 % (2-9); NEUTROPHILS # (AUTO) 6.08 x10^3/uL (1.8-6.8); NEUTROPHILS % (AUTO) 82 % (42-75); PLATELET COUNT 217 x10^3/uL (130-400); RED BLOOD COUNT 3.09 x10^6/uL (3.82-5.3); RED CELL DISTRIBUTION WIDTH 18.9 % (9.6-15.2)
[2018-03-27 05:55] LABS: CHLORIDE 107 mmol/L (98-107)
[2018-03-27 06:01] LABS: ANION GAP 12 mmol/L (5-15); CREATININE 3.19 mg/dL (0.55-1.02); VANCOMYCIN,RANDOM 19.1 mcg/mL
[2018-03-27] MEDS: HEPARIN 5,000 UNITS/ML, 1ML SQ SCH ×2 (07:00→15:00)
[2018-03-27] MEDS: GLIPizide ER 5 MG TABLET PO SCH (08:00)
[2018-03-27] MEDS: FLUTICASONE/VILANTEROL 200-25MCG/INH INH SCH (09:00)
[2018-03-27] MEDS: TADALAFIL 20 MG HOMEMEDPO SCH (09:00)
[2018-03-27] MEDS: TEMPLATE NON-FORMULARY MED. (Umeclidinium Bromide (Incruse Ellipta) 1 PUFF) INH SCH (09:00)
[2018-03-27 09:22] VITALS: BP 126/83
[2018-03-27] MEDS: CARVEDILOL 6.25 MG TABLET PO SCH ×2 (09:28→20:44)
[2018-03-27] MEDS: ALLOPURINOL 100 MG TABLET PO SCH (09:28)
[2018-03-27] MEDS: FOLIC ACID 1 MG TABLET PO SCH (09:28)
[2018-03-27] MEDS: FUROSEMIDE 40 MG TABLET PO SCH ×3 (09:29→20:44)
[2018-03-27] MEDS: ASPIRIN 81 MG TABLET CHEW PO SCH (09:31)
[2018-03-27] MEDS: SODIUM CHLORIDE FLUSH 10ML SYR IVF SCH ×2 (09:32→20:45)
[2018-03-27 14:38] VITALS: BP 109/68
[2018-03-27 19:50] VITALS: BP 107/73
[2018-03-27] MEDS: LOVASTATIN 40 MG TABLET PO SCH (20:44)
[2018-03-27] MEDS: GABAPENTIN 300 MG CAPSULE PO SCH (20:44)
[2018-03-27] MEDS: HYDROCODONE BITARTRATE 20 MG HOMEMEDPO SCH (20:45)
[2018-03-28 00:37] VITALS: BP 126/82
[2018-03-28] MEDS: HEPARIN 5,000 UNITS/ML, 1ML SQ SCH ×3 (03:39→23:29)
[2018-03-28 06:16] LABS: % IRON SATURATION 17 % (20-55); ANION GAP 13 mmol/L (5-15); CALCIUM 8.1 mg/dL (8.5-10.1); CHLORIDE 107 mmol/L (98-107); CREATININE 3.42 mg/dL (0.55-1.02); IRON LEVEL 42 mcg/dL (50-170); TOTAL IRON BINDING CAPACITY 250 mcg/dL (250-450)
[2018-03-28 06:47] LABS: FOLATE LEVEL > 20.0 ng/mL (3.1-17.5)
[2018-03-28 06:50] LABS: HEMOGLOBIN A1C 7.8 % (4.2-6.3)
[2018-03-28] MEDS: GLIPizide ER 5 MG TABLET PO SCH (08:00)
[2018-03-28 08:11] VITALS: BP 113/76
[2018-03-28] MEDS: TEMPLATE NON-FORMULARY MED. (Umeclidinium Bromide (Incruse Ellipta) 1 PUFF) INH SCH (09:00)
[2018-03-28] MEDS: FLUTICASONE/VILANTEROL 200-25MCG/INH INH SCH (09:00)
[2018-03-28] MEDS: TADALAFIL 20 MG HOMEMEDPO SCH (09:00)
[2018-03-28] MEDS: AMPICILLIN/SULBACTAM 3 GM in SODIUM CHLORIDE 0.9% 100 ML IV SCH ×2 (09:04→20:00)
[2018-03-28] MEDS: ASPIRIN 81 MG TABLET CHEW PO SCH (09:05)
[2018-03-28] MEDS: CARVEDILOL 6.25 MG TABLET PO SCH ×2 (09:05→20:06)
[2018-03-28] MEDS: FOLIC ACID 1 MG TABLET PO SCH (09:05)
[2018-03-28] MEDS: FUROSEMIDE 40 MG TABLET PO SCH ×3 (09:05→20:06)
[2018-03-28] MEDS: ALLOPURINOL 100 MG TABLET PO SCH (09:05)
[2018-03-28] MEDS: SODIUM CHLORIDE FLUSH 10ML SYR IVF SCH ×2 (09:06→20:06)
[2018-03-28] MEDS: HYDROcodone/APAP 10/325 MG TABLET PO PRN (09:24)
[2018-03-28 14:25] VITALS: BP 122/81
[2018-03-28 18:24] LABS: CREATININE,URINE RANDOM 89.3 mg/dL
[2018-03-28 18:27] VITALS: BP 125/83
[2018-03-28 18:27] LABS: MICROSCOPIC INDICATED
[2018-03-28 18:35] LABS: CULTURE INDICATED? YES
[2018-03-28] MEDS: GABAPENTIN 300 MG CAPSULE PO SCH (20:05)
[2018-03-28] MEDS: LOVASTATIN 40 MG TABLET PO SCH (20:05)
[2018-03-28] MEDS: HYDROCODONE BITARTRATE 20 MG HOMEMEDPO SCH (20:07)
[2018-03-29 00:45] VITALS: BP 139/96
[2018-03-29] MEDS: HYDROcodone/APAP 10/325 MG TABLET PO PRN (00:51)
[2018-03-29 05:06] LABS: BASOPHILS # (AUTO) 0.03 x10^3/uL (0-0.1); BASOPHILS % (AUTO) 0 % (0-1); EOSINOPHILS # (AUTO) 0.24 x10^3/uL (0-0.4); EOSINOPHILS % (AUTO) 3 % (1-7); LYMPHOCYTES # (AUTO) 0.43 x10^3/uL (1-3.4); LYMPHOCYTES % (AUTO) 5 % (22-44); MD NO; MEAN CORPUSCULAR HEMOGLOBIN 32.8 pg (27.0-34.8); MEAN CORPUSCULAR HGB CONC 32.8 g/dL (32.4-35.8); MEAN CORPUSCULAR VOLUME 99.9 fL (80-100); MEAN PLATELET VOLUME 8.4 fL (7.4-10.4); MONOCYTES # (AUTO) 0.76 x10^3/uL (0.2-0.8); MONOCYTES % (AUTO) 9 % (2-9); NEUTROPHILS # (AUTO) 6.78 x10^3/uL (1.8-6.8); NEUTROPHILS % (AUTO) 82 % (42-75); PLATELET COUNT 231 x10^3/uL (130-400); RED BLOOD COUNT 2.81 x10^6/uL (3.82-5.3); RED CELL DISTRIBUTION WIDTH 19.4 % (9.6-15.2)
[2018-03-29 05:17] LABS: ANION GAP 11 mmol/L (5-15); CALCIUM 8.5 mg/dL (8.5-10.1); CHLORIDE 106 mmol/L (98-107); CREATININE 3.84 mg/dL (0.55-1.02)
[2018-03-29 05:18] LABS: VANCOMYCIN,RANDOM 12.9 mcg/mL
[2018-03-29 07:53] VITALS: BP 105/70
[2018-03-29 08:29] VITALS: BP 114/77
[2018-03-29] MEDS: HEPARIN 5,000 UNITS/ML, 1ML SQ SCH ×2 (08:32→17:16)
[2018-03-29] MEDS: AMPICILLIN/SULBACTAM 3 GM in SODIUM CHLORIDE 0.9% 100 ML IV SCH ×2 (08:32→19:59)
[2018-03-29] MEDS: GLIPizide ER 5 MG TABLET PO SCH (08:32)
[2018-03-29] MEDS: TADALAFIL 20 MG HOMEMEDPO SCH (08:33)
[2018-03-29] MEDS: TEMPLATE NON-FORMULARY MED. (Umeclidinium Bromide (Incruse Ellipta) 1 PUFF) INH SCH (08:34)
[2018-03-29] MEDS: FLUTICASONE/VILANTEROL 200-25MCG/INH INH SCH (08:35)
[2018-03-29] MEDS: SODIUM CHLORIDE FLUSH 10ML SYR IVF SCH ×2 (08:35→21:00)
[2018-03-29] MEDS: CARVEDILOL 6.25 MG TABLET PO SCH ×2 (08:36→21:34)
[2018-03-29] MEDS: FOLIC ACID 1 MG TABLET PO SCH (08:36)
[2018-03-29] MEDS: ALLOPURINOL 100 MG TABLET PO SCH (08:36)
[2018-03-29] MEDS: ASPIRIN 81 MG TABLET CHEW PO SCH (08:36)
[2018-03-29] MEDS: FUROSEMIDE 40 MG TABLET PO SCH ×3 (08:36→21:34)
[2018-03-29] MEDS ORDERED: VANCOMYCIN 2,000 MG in SODIUM CHLORIDE 0.9% 500 ML IV ONE (11:00)
[2018-03-29 17:34] VITALS: BP 112/83
[2018-03-29 20:51] VITALS: BP 114/82
[2018-03-29] MEDS: HYDROCODONE BITARTRATE 20 MG HOMEMEDPO SCH (21:00)
[2018-03-29] MEDS: GABAPENTIN 300 MG CAPSULE PO SCH (21:34)
[2018-03-29] MEDS: LOVASTATIN 40 MG TABLET PO SCH (21:34)
[2018-03-30] MEDS: HEPARIN 5,000 UNITS/ML, 1ML SQ SCH ×4 (00:30→23:53)
[2018-03-30 02:08] VITALS: BP 111/71
[2018-03-30 05:22] LABS: ANION GAP 12 mmol/L (5-15); CALCIUM 8.1 mg/dL (8.5-10.1); CHLORIDE 107 mmol/L (98-107); CREATININE 4.15 mg/dL (0.55-1.02)
[2018-03-30 07:22] VITALS: BP 95/66
[2018-03-30] MEDS: AMPICILLIN/SULBACTAM 3 GM in SODIUM CHLORIDE 0.9% 100 ML IV SCH ×2 (08:28→19:50)
[2018-03-30] MEDS: FOLIC ACID 1 MG TABLET PO SCH (08:28)
[2018-03-30] MEDS: ALLOPURINOL 100 MG TABLET PO SCH (08:28)
[2018-03-30] MEDS: FUROSEMIDE 40 MG TABLET PO SCH ×3 (08:28→19:51)
[2018-03-30] MEDS: TADALAFIL 20 MG HOMEMEDPO SCH (08:29)
[2018-03-30] MEDS: CARVEDILOL 6.25 MG TABLET PO SCH ×2 (08:29→19:51)
[2018-03-30] MEDS: GLIPizide ER 5 MG TABLET PO SCH (08:29)
[2018-03-30] MEDS: ASPIRIN 81 MG TABLET CHEW PO SCH (08:29)
[2018-03-30] MEDS: TEMPLATE NON-FORMULARY MED. (Umeclidinium Bromide (Incruse Ellipta) 1 PUFF) INH SCH (08:30)
[2018-03-30] MEDS: FLUTICASONE/VILANTEROL 200-25MCG/INH INH SCH (08:30)
[2018-03-30] MEDS: SODIUM CHLORIDE FLUSH 10ML SYR IVF SCH ×2 (08:30→19:51)
[2018-03-30 13:30] VITALS: BP 117/79
[2018-03-30] MEDS: HYDROcodone/APAP 10/325 MG TABLET PO PRN (14:58)
[2018-03-30 19:10] VITALS: BP 112/79
[2018-03-30] MEDS: HYDROCODONE BITARTRATE 20 MG HOMEMEDPO SCH (19:50)
[2018-03-30] MEDS: LOVASTATIN 40 MG TABLET PO SCH (19:51)
[2018-03-30] MEDS: GABAPENTIN 300 MG CAPSULE PO SCH (19:51)
[2018-03-31] MEDS: HYDROcodone/APAP 10/325 MG TABLET PO PRN ×2 (00:01→21:48)
[2018-03-31 00:21] VITALS: BP 113/80
[2018-03-31 04:42] LABS: BASOPHILS # (AUTO) 0.05 x10^3/uL (0-0.1); BASOPHILS % (AUTO) 1 % (0-1); EOSINOPHILS # (AUTO) 0.26 x10^3/uL (0-0.4); EOSINOPHILS % (AUTO) 3 % (1-7); LYMPHOCYTES # (AUTO) 0.56 x10^3/uL (1-3.4); LYMPHOCYTES % (AUTO) 6 % (22-44); MD NO; MEAN CORPUSCULAR HEMOGLOBIN 31.5 pg (27.0-34.8); MEAN CORPUSCULAR HGB CONC 31.2 g/dL (32.4-35.8); MEAN CORPUSCULAR VOLUME 100.9 fL (80-100); MEAN PLATELET VOLUME 9.1 fL (7.4-10.4); MONOCYTES # (AUTO) 0.76 x10^3/uL (0.2-0.8); MONOCYTES % (AUTO) 8 % (2-9); NEUTROPHILS # (AUTO) 7.44 x10^3/uL (1.8-6.8); NEUTROPHILS % (AUTO) 82 % (42-75); PLATELET COUNT 200 x10^3/uL (130-400); RED BLOOD COUNT 3.04 x10^6/uL (3.82-5.3); RED CELL DISTRIBUTION WIDTH 19.1 % (9.6-15.2)
[2018-03-31 04:47] LABS: INTERNATIONAL NORMALIZED RATIO 1.23 (0.93-1.1); PROTHROMBIN TIME 12.7 Seconds (9.6-11.5)
[2018-03-31 04:49] LABS: ANION GAP 14 mmol/L (5-15); CALCIUM 8.2 mg/dL (8.5-10.1); CHLORIDE 104 mmol/L (98-107); CREATININE 4.37 mg/dL (0.55-1.02)
[2018-03-31 07:37] VITALS: BP 113/78
[2018-03-31] MEDS: GLIPizide ER 5 MG TABLET PO SCH (08:00)
[2018-03-31] MEDS: AMPICILLIN/SULBACTAM 3 GM in SODIUM CHLORIDE 0.9% 100 ML IV SCH (08:19)
[2018-03-31] MEDS: HEPARIN 5,000 UNITS/ML, 1ML SQ SCH ×2 (08:23→17:16)
[2018-03-31] MEDS: TADALAFIL 20 MG HOMEMEDPO SCH (08:23)
[2018-03-31] MEDS: TEMPLATE NON-FORMULARY MED. (Umeclidinium Bromide (Incruse Ellipta) 1 PUFF) INH SCH (08:23)
[2018-03-31] MEDS: FOLIC ACID 1 MG TABLET PO SCH (08:24)
[2018-03-31] MEDS: FLUTICASONE/VILANTEROL 200-25MCG/INH INH SCH (08:24)
[2018-03-31] MEDS: FUROSEMIDE 40 MG TABLET PO SCH ×3 (08:24→21:47)
[2018-03-31] MEDS: SODIUM CHLORIDE FLUSH 10ML SYR IVF SCH ×2 (08:24→21:47)
[2018-03-31] MEDS: ASPIRIN 81 MG TABLET CHEW PO SCH (08:24)
[2018-03-31] MEDS: CARVEDILOL 6.25 MG TABLET PO SCH ×2 (08:24→21:47)
[2018-03-31] MEDS: ALLOPURINOL 100 MG TABLET PO SCH (08:25)
[2018-03-31] MEDS ORDERED: LIDOCAINE 2%, 20ML ONE (09:02)
[2018-03-31] MEDS ORDERED: MIDAZOLAM 1 MG/ML, 5ML ONE (09:45)
[2018-03-31] MEDS ORDERED: FENTANYL PF 100 MCG/2ML ONE (09:45)
[2018-03-31 12:50] VITALS: BP 111/77
[2018-03-31 19:46] VITALS: BP 113/79
[2018-03-31] MEDS: GABAPENTIN 300 MG CAPSULE PO SCH (21:47)
[2018-03-31] MEDS: LOVASTATIN 40 MG TABLET PO SCH (21:47)
[2018-03-31] MEDS: DOXYCYCLINE 100MG TABLET PO SCH (21:47)
[2018-03-31] MEDS: HYDROCODONE BITARTRATE 20 MG HOMEMEDPO SCH (21:48)
[2018-04-01] MEDS: HEPARIN 5,000 UNITS/ML, 1ML SQ SCH ×3 (02:12→16:22)
[2018-04-01 03:21] VITALS: BP 94/63
[2018-04-01 05:09] LABS: ANION GAP 10 mmol/L (5-15); CALCIUM 8.1 mg/dL (8.5-10.1); CHLORIDE 103 mmol/L (98-107); CREATININE 3.26 mg/dL (0.55-1.02)
[2018-04-01 05:13] LABS: BASOPHILS # (AUTO) 0.05 x10^3/uL (0-0.1); BASOPHILS % (AUTO) 1 % (0-1); EOSINOPHILS # (AUTO) 0.21 x10^3/uL (0-0.4); EOSINOPHILS % (AUTO) 3 % (1-7); LYMPHOCYTES # (AUTO) 0.43 x10^3/uL (1-3.4); LYMPHOCYTES % (AUTO) 5 % (22-44); MD NO; MEAN CORPUSCULAR HEMOGLOBIN 31.6 pg (27.0-34.8); MEAN CORPUSCULAR HGB CONC 31.5 g/dL (32.4-35.8); MEAN CORPUSCULAR VOLUME 100.3 fL (80-100); MONOCYTES # (AUTO) 0.78 x10^3/uL (0.2-0.8); MONOCYTES % (AUTO) 10 % (2-9); NEUTROPHILS # (AUTO) 6.74 x10^3/uL (1.8-6.8); NEUTROPHILS % (AUTO) 82 % (42-75); PLATELET COUNT 202 x10^3/uL (130-400); RED BLOOD COUNT 2.96 x10^6/uL (3.82-5.3)
[2018-04-01] MEDS: ASPIRIN 81 MG TABLET CHEW PO SCH (08:02)
[2018-04-01] MEDS: GLIPizide ER 5 MG TABLET PO SCH (08:02)
[2018-04-01] MEDS: SODIUM CHLORIDE FLUSH 10ML SYR IVF SCH ×2 (08:02→20:55)
[2018-04-01] MEDS: ALLOPURINOL 100 MG TABLET PO SCH (08:02)
[2018-04-01] MEDS: FOLIC ACID 1 MG TABLET PO SCH (08:02)
[2018-04-01] MEDS: FLUTICASONE/VILANTEROL 200-25MCG/INH INH SCH (08:03)
[2018-04-01] MEDS: TEMPLATE NON-FORMULARY MED. (Umeclidinium Bromide (Incruse Ellipta) 1 PUFF) INH SCH (08:03)
[2018-04-01] MEDS: TADALAFIL 20 MG HOMEMEDPO SCH (08:03)
[2018-04-01 08:23] VITALS: BP 115/82
[2018-04-01] MEDS: AMOXICILLIN/CLAV 500-125MG TABLET PO SCH (12:17)
[2018-04-01] MEDS: FUROSEMIDE 40 MG TABLET PO SCH ×3 (12:17→20:50)
[2018-04-01] MEDS: CARVEDILOL 6.25 MG TABLET PO SCH ×2 (12:17→20:56)
[2018-04-01] MEDS: DOXYCYCLINE 100MG TABLET PO SCH ×2 (12:18→20:56)
[2018-04-01 14:00] VITALS: BP 109/74
[2018-04-01] MEDS: HYDROcodone/APAP 10/325 MG TABLET PO PRN (14:24)
[2018-04-01 17:10] VITALS: BP 112/76
[2018-04-01 20:00] VITALS: BP 99/67
[2018-04-01] MEDS: HYDROCODONE BITARTRATE 20 MG HOMEMEDPO SCH (20:27)
[2018-04-01] MEDS: LOVASTATIN 40 MG TABLET PO SCH (20:56)
[2018-04-01] MEDS: GABAPENTIN 300 MG CAPSULE PO SCH (20:56)
[2018-04-02] MEDS: HEPARIN 5,000 UNITS/ML, 1ML SQ SCH ×3 (01:48→18:08)
[2018-04-02 02:00] VITALS: BP 117/79
[2018-04-02 07:16] VITALS: BP 105/69
[2018-04-02] MEDS: GLIPizide ER 5 MG TABLET PO SCH (09:31)
[2018-04-02] MEDS: AMOXICILLIN/CLAV 500-125MG TABLET PO SCH (09:32)
[2018-04-02] MEDS: FOLIC ACID 1 MG TABLET PO SCH (09:32)
[2018-04-02] MEDS: ALLOPURINOL 100 MG TABLET PO SCH (09:32)
[2018-04-02] MEDS: DOXYCYCLINE 100MG TABLET PO SCH ×2 (09:32→21:16)
[2018-04-02] MEDS: ASPIRIN 81 MG TABLET CHEW PO SCH (09:32)
[2018-04-02] MEDS: SODIUM CHLORIDE FLUSH 10ML SYR IVF SCH ×3 (09:35→21:16)
[2018-04-02] MEDS: FUROSEMIDE 40 MG TABLET PO SCH (09:35)
[2018-04-02] MEDS: CARVEDILOL 6.25 MG TABLET PO SCH (09:35)
[2018-04-02] MEDS: HYDROcodone/APAP 10/325 MG TABLET PO PRN ×3 (09:44→23:12)
[2018-04-02] MEDS: FLUTICASONE/VILANTEROL 200-25MCG/INH INH SCH (09:46)
[2018-04-02] MEDS: TEMPLATE NON-FORMULARY MED. (Umeclidinium Bromide (Incruse Ellipta) 1 PUFF) INH SCH (09:46)
[2018-04-02] MEDS: TADALAFIL 20 MG HOMEMEDPO SCH (09:47)
[2018-04-02 14:53] VITALS: BP 119/80
[2018-04-02] MEDS ORDERED: DEXTROSE 50%, 50ML SYRINGE IVPush PRN (16:30)
[2018-04-02] MEDS ORDERED: DEXTROSE 4 GM TAB.CHEW PO PRN (16:30)
[2018-04-02] MEDS ORDERED: GLUCAGON 1 MG IM PRN (16:30)
[2018-04-02 17:53] VITALS: BP 101/67
[2018-04-02] MEDS: INSULIN LISPRO 100 UNITS/ML, PEN SQ-INSULIN SCH ×2 (18:08→21:00)
[2018-04-02 19:03] VITALS: BP 112/70
[2018-04-02] MEDS: HYDROCODONE BITARTRATE 20 MG HOMEMEDPO SCH (21:00)
[2018-04-02] MEDS: CARVEDILOL 3.125 MG TABLET PO SCH (21:15)
[2018-04-02] MEDS: GABAPENTIN 300 MG CAPSULE PO SCH (21:16)
[2018-04-02] MEDS: LOVASTATIN 40 MG TABLET PO SCH (21:16)
[2018-04-03] MEDS: HEPARIN 5,000 UNITS/ML, 1ML SQ SCH ×3 (01:09→18:21)
[2018-04-03 02:31] VITALS: BP 118/80
[2018-04-03 05:19] LABS: CHLORIDE 102 mmol/L (98-107)
[2018-04-03 05:27] LABS: ANION GAP 9 mmol/L (5-15); CALCIUM 8.9 mg/dL (8.5-10.1)
[2018-04-03] MEDS: CARVEDILOL 3.125 MG TABLET PO SCH ×2 (05:47→18:20)
[2018-04-03 06:36] VITALS: BP 109/75
[2018-04-03 07:22] VITALS: BP 115/78
[2018-04-03] MEDS: GLIPizide ER 5 MG TABLET PO SCH (07:46)
[2018-04-03] MEDS: ASPIRIN 81 MG TABLET CHEW PO SCH (07:46)
[2018-04-03] MEDS: AMOXICILLIN/CLAV 500-125MG TABLET PO SCH (07:46)
[2018-04-03] MEDS: HYDROcodone/APAP 10/325 MG TABLET PO PRN ×3 (07:46→18:20)
[2018-04-03] MEDS: FOLIC ACID 1 MG TABLET PO SCH (07:46)
[2018-04-03] MEDS: INSULIN LISPRO 100 UNITS/ML, PEN SQ-INSULIN SCH (07:47)
[2018-04-03] MEDS: TEMPLATE NON-FORMULARY MED. (Umeclidinium Bromide (Incruse Ellipta) 1 PUFF) INH SCH (07:51)
[2018-04-03] MEDS: FLUTICASONE/VILANTEROL 200-25MCG/INH INH SCH (07:51)
[2018-04-03] MEDS: SODIUM CHLORIDE FLUSH 10ML SYR IVF SCH ×4 (07:52→20:47)
[2018-04-03] MEDS: DOXYCYCLINE 100MG TABLET PO SCH ×2 (07:53→20:47)
[2018-04-03] MEDS: ALLOPURINOL 100 MG TABLET PO SCH (07:53)
[2018-04-03 13:13] VITALS: BP 99/66
[2018-04-03] MEDS: TADALAFIL 20 MG HOMEMEDPO SCH (13:13)
[2018-04-03] MEDS: FUROSEMIDE 80 MG TABLET PO SCH (13:13)
[2018-04-03 17:37] VITALS: BP 117/74
[2018-04-03 18:52] VITALS: BP 102/68
[2018-04-03] MEDS: HYDROCODONE BITARTRATE 20 MG HOMEMEDPO SCH (20:47)
[2018-04-03] MEDS: GABAPENTIN 300 MG CAPSULE PO SCH (20:47)
[2018-04-03] MEDS: LOVASTATIN 40 MG TABLET PO SCH (20:47)
[2018-04-04] MEDS: HEPARIN 5,000 UNITS/ML, 1ML SQ SCH ×3 (02:10→17:55)
[2018-04-04 02:33] VITALS: BP 99/63
[2018-04-04] MEDS: HYDROcodone/APAP 10/325 MG TABLET PO PRN ×3 (05:11→17:54)
[2018-04-04] MEDS: CARVEDILOL 3.125 MG TABLET PO SCH ×3 (05:11→21:05)
[2018-04-04 05:40] LABS: CHLORIDE 100 mmol/L (98-107)
[2018-04-04 05:44] LABS: ANION GAP 10 mmol/L (5-15); CALCIUM 8.8 mg/dL (8.5-10.1); CREATININE 1.76 mg/dL (0.55-1.02)
[2018-04-04 07:07] VITALS: BP 91/61
[2018-04-04] MEDS: SODIUM CHLORIDE FLUSH 10ML SYR IVF SCH ×4 (09:00→21:05)
[2018-04-04 09:09] VITALS: BP 116/69
[2018-04-04] MEDS: AMOXICILLIN/CLAV 500-125MG TABLET PO SCH (09:39)
[2018-04-04] MEDS: GLIPizide ER 5 MG TABLET PO SCH (09:40)
[2018-04-04] MEDS: FOLIC ACID 1 MG TABLET PO SCH (09:41)
[2018-04-04] MEDS: ASPIRIN 81 MG TABLET CHEW PO SCH (09:41)
[2018-04-04] MEDS: DOXYCYCLINE 100MG TABLET PO SCH ×2 (09:41→21:05)
[2018-04-04] MEDS: ALLOPURINOL 100 MG TABLET PO SCH (09:41)
[2018-04-04] MEDS: TEMPLATE NON-FORMULARY MED. (Umeclidinium Bromide (Incruse Ellipta) 1 PUFF) INH SCH (09:42)
[2018-04-04] MEDS: FLUTICASONE/VILANTEROL 200-25MCG/INH INH SCH (09:42)
[2018-04-04] MEDS: TADALAFIL 20 MG HOMEMEDPO SCH (09:42)
[2018-04-04] MEDS: FUROSEMIDE 80 MG TABLET PO SCH (09:56)
[2018-04-04 13:37] VITALS: BP 113/81
[2018-04-04 17:52] VITALS: BP 119/80
[2018-04-04 20:35] VITALS: BP 142/98
[2018-04-04] MEDS: HYDROCODONE BITARTRATE 20 MG HOMEMEDPO SCH (21:00)
[2018-04-04] MEDS: GABAPENTIN 300 MG CAPSULE PO SCH (21:05)
[2018-04-04] MEDS: LOVASTATIN 40 MG TABLET PO SCH (21:05)
[2018-04-05 01:10] VITALS: BP 126/82
[2018-04-05] MEDS: HEPARIN 5,000 UNITS/ML, 1ML SQ SCH ×3 (05:49→20:20)
[2018-04-05] MEDS: CARVEDILOL 3.125 MG TABLET PO SCH ×2 (05:49→20:19)
[2018-04-05 05:57] LABS: CHLORIDE 99 mmol/L (98-107)
[2018-04-05 06:03] LABS: ANION GAP 7 mmol/L (5-15); CREATININE 2.17 mg/dL (0.55-1.02)
[2018-04-05 07:00] VITALS: BP 104/66
[2018-04-05] MEDS: ASPIRIN 81 MG TABLET CHEW PO SCH (08:53)
[2018-04-05] MEDS: ALLOPURINOL 100 MG TABLET PO SCH (08:53)
[2018-04-05] MEDS: AMOXICILLIN/CLAV 500-125MG TABLET PO SCH (08:53)
[2018-04-05] MEDS: DOXYCYCLINE 100MG TABLET PO SCH ×2 (08:53→20:20)
[2018-04-05] MEDS: GLIPizide ER 5 MG TABLET PO SCH (08:54)
[2018-04-05] MEDS: SODIUM CHLORIDE FLUSH 10ML SYR IVF SCH ×4 (08:55→20:18)
[2018-04-05] MEDS: FLUTICASONE/VILANTEROL 200-25MCG/INH INH SCH (08:56)
[2018-04-05] MEDS: TEMPLATE NON-FORMULARY MED. (Umeclidinium Bromide (Incruse Ellipta) 1 PUFF) INH SCH (08:56)
[2018-04-05] MEDS: TADALAFIL 20 MG HOMEMEDPO SCH (08:56)
[2018-04-05] MEDS: FOLIC ACID 1 MG TABLET PO SCH (08:57)
[2018-04-05] MEDS: FUROSEMIDE 80 MG TABLET PO SCH (09:00)
[2018-04-05] MEDS: HYDROcodone/APAP 10/325 MG TABLET PO PRN ×2 (11:54→23:49)
[2018-04-05 13:06] VITALS: BP 108/75
[2018-04-05 18:26] VITALS: BP 130/84
[2018-04-05] MEDS: LOVASTATIN 40 MG TABLET PO SCH (20:19)
[2018-04-05] MEDS: HYDROCODONE BITARTRATE 20 MG HOMEMEDPO SCH (20:19)
[2018-04-05] MEDS: GABAPENTIN 300 MG CAPSULE PO SCH (20:20)
[2018-04-05 20:22] VITALS: BP 111/60
[2018-04-06 03:50] VITALS: BP 102/67
[2018-04-06] MEDS: HEPARIN 5,000 UNITS/ML, 1ML SQ SCH ×3 (05:12→21:00)
[2018-04-06 06:40] VITALS: BP 110/66
[2018-04-06] MEDS: GLIPizide ER 5 MG TABLET PO SCH (08:00)
[2018-04-06] MEDS: CARVEDILOL 3.125 MG TABLET PO SCH ×2 (08:00→17:48)
[2018-04-06 08:45] LABS: ANION GAP 7 mmol/L (5-15); CALCIUM 8.6 mg/dL (8.5-10.1); CHLORIDE 98 mmol/L (98-107)
[2018-04-06] MEDS: ASPIRIN 81 MG TABLET CHEW PO SCH (09:00)
[2018-04-06] MEDS: TEMPLATE NON-FORMULARY MED. (Umeclidinium Bromide (Incruse Ellipta) 1 PUFF) INH SCH (09:00)
[2018-04-06] MEDS: FOLIC ACID 1 MG TABLET PO SCH (09:00)
[2018-04-06] MEDS: AMOXICILLIN/CLAV 500-125MG TABLET PO SCH (09:00)
[2018-04-06] MEDS: FUROSEMIDE 80 MG TABLET PO SCH (09:00)
[2018-04-06] MEDS: DOXYCYCLINE 100MG TABLET PO SCH ×2 (09:00→21:30)
[2018-04-06] MEDS: SODIUM CHLORIDE FLUSH 10ML SYR IVF SCH ×4 (09:00→21:30)
[2018-04-06] MEDS: FLUTICASONE/VILANTEROL 200-25MCG/INH INH SCH (09:00)
[2018-04-06] MEDS: ALLOPURINOL 100 MG TABLET PO SCH (09:00)
[2018-04-06] MEDS: TADALAFIL 20 MG HOMEMEDPO SCH (09:00)
[2018-04-06 13:40] VITALS: BP 98/54
[2018-04-06] MEDS: HYDROcodone/APAP 10/325 MG TABLET PO PRN (17:48)
[2018-04-06 18:47] VITALS: BP 100/61
[2018-04-06] MEDS: HYDROCODONE BITARTRATE 20 MG HOMEMEDPO SCH (21:00)
[2018-04-06] MEDS: LOVASTATIN 40 MG TABLET PO SCH (21:30)
[2018-04-06] MEDS: GABAPENTIN 300 MG CAPSULE PO SCH (21:30)
[2018-04-07 01:09] VITALS: BP 96/65
[2018-04-07 05:11] LABS: BASOPHILS # (AUTO) 0.05 x10^3/uL (0-0.1); BASOPHILS % (AUTO) 1 % (0-1); EOSINOPHILS # (AUTO) 0.39 x10^3/uL (0-0.4); EOSINOPHILS % (AUTO) 4 % (1-7); LYMPHOCYTES # (AUTO) 0.56 x10^3/uL (1-3.4); LYMPHOCYTES % (AUTO) 6 % (22-44); MD NO; MEAN CORPUSCULAR HEMOGLOBIN 31.8 pg (27.0-34.8); MEAN CORPUSCULAR HGB CONC 31.6 g/dL (32.4-35.8); MEAN CORPUSCULAR VOLUME 100.5 fL (80-100); MEAN PLATELET VOLUME 8.9 fL (7.4-10.4); MONOCYTES # (AUTO) 0.92 x10^3/uL (0.2-0.8); MONOCYTES % (AUTO) 10 % (2-9); NEUTROPHILS # (AUTO) 7.08 x10^3/uL (1.8-6.8); NEUTROPHILS % (AUTO) 79 % (42-75); PLATELET COUNT 185 x10^3/uL (130-400); RED BLOOD COUNT 2.81 x10^6/uL (3.82-5.3)
[2018-04-07] MEDS: HEPARIN 5,000 UNITS/ML, 1ML SQ SCH ×3 (05:14→20:45)
[2018-04-07 05:19] LABS: ALBUMIN 2.2 g/dL (3.4-5.0); ANION GAP 9 mmol/L (5-15); CALCIUM 8.9 mg/dL (8.5-10.1); CHLORIDE 99 mmol/L (98-107)
[2018-04-07 05:26] LABS: ALANINE AMINOTRANSFERASE 9 U/L (12-78); ALKALINE PHOSPHATASE 127 U/L (45-117); BILIRUBIN,TOTAL 0.8 mg/dL (0.2-1.0); CREATININE 2.05 mg/dL (0.55-1.02); TOTAL PROTEIN 7.1 g/dL (6.4-8.2)
[2018-04-07 06:45] VITALS: BP 98/60
[2018-04-07] MEDS: AMOXICILLIN/CLAV 500-125MG TABLET PO SCH (08:39)
[2018-04-07] MEDS: GLIPizide ER 5 MG TABLET PO SCH (08:39)
[2018-04-07] MEDS: ASPIRIN 81 MG TABLET CHEW PO SCH (08:40)
[2018-04-07] MEDS: ALLOPURINOL 100 MG TABLET PO SCH (08:40)
[2018-04-07] MEDS: FOLIC ACID 1 MG TABLET PO SCH (08:40)
[2018-04-07] MEDS: CARVEDILOL 3.125 MG TABLET PO SCH ×2 (08:40→18:02)
[2018-04-07] MEDS: DOXYCYCLINE 100MG TABLET PO SCH ×2 (08:40→20:44)
[2018-04-07] MEDS: TADALAFIL 20 MG HOMEMEDPO SCH (08:41)
[2018-04-07] MEDS: TEMPLATE NON-FORMULARY MED. (Umeclidinium Bromide (Incruse Ellipta) 1 PUFF) INH SCH (08:42)
[2018-04-07] MEDS: FLUTICASONE/VILANTEROL 200-25MCG/INH INH SCH (08:42)
[2018-04-07] MEDS: SODIUM CHLORIDE FLUSH 10ML SYR IVF SCH ×4 (08:43→20:45)
[2018-04-07] MEDS: FUROSEMIDE 40 MG/4 ML IV SCH ×2 (08:56→18:02)
[2018-04-07] MEDS: IRON SUCROSE COMPLEX 100MG/5ML IV SCH (09:03)
[2018-04-07] MEDS: HYDROcodone/APAP 10/325 MG TABLET PO PRN ×2 (10:44→21:29)
[2018-04-07 13:51] VITALS: BP 98/63
[2018-04-07 19:29] VITALS: BP 117/69
[2018-04-07] MEDS: GABAPENTIN 300 MG CAPSULE PO SCH (20:44)
[2018-04-07] MEDS: LOVASTATIN 40 MG TABLET PO SCH (20:44)
[2018-04-07] MEDS: HYDROCODONE BITARTRATE 20 MG HOMEMEDPO SCH (20:45)
[2018-04-08 00:43] VITALS: BP 113/64
[2018-04-08] MEDS: HEPARIN 5,000 UNITS/ML, 1ML SQ SCH ×2 (05:11→13:17)
[2018-04-08 05:14] VITALS: BP 100/63
[2018-04-08 05:53] LABS: ALBUMIN 2.5 g/dL (3.4-5.0); ANION GAP 7 mmol/L (5-15); CHLORIDE 98 mmol/L (98-107)
[2018-04-08 05:56] LABS: ALANINE AMINOTRANSFERASE 11 U/L (12-78); ALKALINE PHOSPHATASE 143 U/L (45-117); BILIRUBIN,TOTAL 0.9 mg/dL (0.2-1.0); CREATININE 2.36 mg/dL (0.55-1.02); TOTAL PROTEIN 7.5 g/dL (6.4-8.2)
[2018-04-08 06:52] VITALS: BP 109/63
[2018-04-08] MEDS: CARVEDILOL 3.125 MG TABLET PO SCH ×2 (08:00→17:21)
[2018-04-08] MEDS: FUROSEMIDE 40 MG/4 ML IV SCH ×2 (08:52→17:21)
[2018-04-08] MEDS: ALLOPURINOL 100 MG TABLET PO SCH (08:54)
[2018-04-08] MEDS: FOLIC ACID 1 MG TABLET PO SCH (08:54)
[2018-04-08] MEDS: ASPIRIN 81 MG TABLET CHEW PO SCH (08:54)
[2018-04-08] MEDS: GLIPizide ER 5 MG TABLET PO SCH (08:54)
[2018-04-08] MEDS: AMOXICILLIN/CLAV 500-125MG TABLET PO SCH (08:54)
[2018-04-08] MEDS: DOXYCYCLINE 100MG TABLET PO SCH (08:54)
[2018-04-08] MEDS: TEMPLATE NON-FORMULARY MED. (Umeclidinium Bromide (Incruse Ellipta) 1 PUFF) INH SCH (08:56)
[2018-04-08] MEDS: FLUTICASONE/VILANTEROL 200-25MCG/INH INH SCH (08:56)
[2018-04-08] MEDS: SODIUM CHLORIDE FLUSH 10ML SYR IVF SCH ×4 (08:56→20:20)
[2018-04-08] MEDS: TADALAFIL 20 MG HOMEMEDPO SCH (09:00)
[2018-04-08] MEDS: HYDROcodone/APAP 10/325 MG TABLET PO PRN ×2 (13:06→19:36)
[2018-04-08 15:45] VITALS: BP 111/68
[2018-04-08 19:30] VITALS: BP 103/58
[2018-04-08] MEDS: GABAPENTIN 300 MG CAPSULE PO SCH (20:20)
[2018-04-08] MEDS: LOVASTATIN 40 MG TABLET PO SCH (20:20)
[2018-04-08] MEDS: HYDROCODONE BITARTRATE 20 MG HOMEMEDPO SCH (21:00)
[2018-04-09] VITALS (8 sets, daily range): BP systolic 91–115; BP diastolic 51–73
[2018-04-09] MEDS: HEPARIN 5,000 UNITS/ML, 1ML SQ SCH ×3 (01:28→18:33)
[2018-04-09] MEDS: HYDROcodone/APAP 10/325 MG TABLET PO PRN ×3 (01:29→21:10)
[2018-04-09 05:45] LABS: CHLORIDE 100 mmol/L (98-107)
[2018-04-09] MEDS: CARVEDILOL 3.125 MG TABLET PO SCH ×2 (05:55→05:59)
[2018-04-09 05:57] LABS: ALANINE AMINOTRANSFERASE 12 U/L (12-78); ALBUMIN 2.4 g/dL (3.4-5.0); ALKALINE PHOSPHATASE 159 U/L (45-117); ANION GAP 10 mmol/L (5-15); BILIRUBIN,TOTAL 0.8 mg/dL (0.2-1.0); CALCIUM 8.7 mg/dL (8.5-10.1); CREATININE 1.68 mg/dL (0.55-1.02); TOTAL PROTEIN 7.6 g/dL (6.4-8.2)
[2018-04-09] MEDS: ASPIRIN 81 MG TABLET CHEW PO SCH (08:39)
[2018-04-09] MEDS: ALLOPURINOL 100 MG TABLET PO SCH (08:39)
[2018-04-09] MEDS: FUROSEMIDE 40 MG/4 ML IV SCH (08:40)
[2018-04-09] MEDS: FOLIC ACID 1 MG TABLET PO SCH (08:40)
[2018-04-09] MEDS: GLIPizide ER 5 MG TABLET PO SCH (08:40)
[2018-04-09] MEDS: TEMPLATE NON-FORMULARY MED. (Umeclidinium Bromide (Incruse Ellipta) 1 PUFF) INH SCH (08:40)
[2018-04-09] MEDS: FLUTICASONE/VILANTEROL 200-25MCG/INH INH SCH (08:41)
[2018-04-09] MEDS: TADALAFIL 20 MG HOMEMEDPO SCH (08:46)
[2018-04-09] MEDS ORDERED: MIDODRINE 5 MG TABLET PO SCH (09:00)
[2018-04-09] MEDS: SODIUM CHLORIDE FLUSH 10ML SYR IVF SCH ×2 (09:45→21:09)
[2018-04-09] MEDS: IRON SUCROSE COMPLEX 100MG/5ML IV SCH (09:46)
[2018-04-09] MEDS: MIDODRINE 5 MG TABLET PO SCH ×3 (11:24→21:10)
[2018-04-09] MEDS: HYDROCODONE BITARTRATE 20 MG HOMEMEDPO SCH (21:09)
[2018-04-09] MEDS: LOVASTATIN 40 MG TABLET PO SCH (21:09)
[2018-04-09] MEDS: GABAPENTIN 300 MG CAPSULE PO SCH (21:10)
[2018-04-10] VITALS (8 sets, daily range): BP systolic 97–137; BP diastolic 60–91
[2018-04-10] MEDS: HEPARIN 5,000 UNITS/ML, 1ML SQ SCH ×3 (01:49→17:56)
[2018-04-10] MEDS: GLIPizide ER 5 MG TABLET PO SCH (08:27)
[2018-04-10] MEDS: HYDROcodone/APAP 10/325 MG TABLET PO PRN ×2 (08:27→17:56)
[2018-04-10] MEDS: FOLIC ACID 1 MG TABLET PO SCH (08:27)
[2018-04-10] MEDS: ASPIRIN 81 MG TABLET CHEW PO SCH (08:27)
[2018-04-10] MEDS: TADALAFIL 20 MG HOMEMEDPO SCH (08:28)
[2018-04-10] MEDS: TEMPLATE NON-FORMULARY MED. (Umeclidinium Bromide (Incruse Ellipta) 1 PUFF) INH SCH (08:29)
[2018-04-10] MEDS: SODIUM CHLORIDE FLUSH 10ML SYR IVF SCH ×2 (08:29→20:32)
[2018-04-10] MEDS: MIDODRINE 5 MG TABLET PO SCH ×3 (08:30→20:31)
[2018-04-10] MEDS: FLUTICASONE/VILANTEROL 200-25MCG/INH INH SCH (08:33)
[2018-04-10 09:50] LABS: ALANINE AMINOTRANSFERASE 12 U/L (12-78); ALBUMIN 2.6 g/dL (3.4-5.0); ANION GAP 10 mmol/L (5-15); CALCIUM 8.8 mg/dL (8.5-10.1); CHLORIDE 100 mmol/L (98-107)
[2018-04-10 09:53] LABS: ALKALINE PHOSPHATASE 167 U/L (45-117); BILIRUBIN,TOTAL 0.8 mg/dL (0.2-1.0); CREATININE 2.17 mg/dL (0.55-1.02); TOTAL PROTEIN 7.7 g/dL (6.4-8.2)
[2018-04-10] MEDS ORDERED: FUROSEMIDE 100 MG/10 ML IV ONE (10:30)
[2018-04-10] MEDS ORDERED: FUROSEMIDE 40 MG/4 ML IV ONE (17:00)
[2018-04-10] MEDS: LOVASTATIN 40 MG TABLET PO SCH (20:31)
[2018-04-10] MEDS: GABAPENTIN 300 MG CAPSULE PO SCH (20:32)
[2018-04-10] MEDS: HYDROCODONE BITARTRATE 20 MG HOMEMEDPO SCH (20:32)
[2018-04-11 00:18] VITALS: BP 119/79
[2018-04-11] MEDS: HEPARIN 5,000 UNITS/ML, 1ML SQ SCH ×2 (00:59→09:30)
[2018-04-11] MEDS: HYDROcodone/APAP 10/325 MG TABLET PO PRN ×3 (01:08→18:21)
[2018-04-11 05:23] LABS: BASOPHILS # (AUTO) 0.03 x10^3/uL (0-0.1); BASOPHILS % (AUTO) 0 % (0-1); EOSINOPHILS # (AUTO) 0.15 x10^3/uL (0-0.4); EOSINOPHILS % (AUTO) 2 % (1-7); LYMPHOCYTES # (AUTO) 0.64 x10^3/uL (1-3.4); LYMPHOCYTES % (AUTO) 7 % (22-44); MD NO; MEAN CORPUSCULAR HEMOGLOBIN 31.6 pg (27.0-34.8); MEAN CORPUSCULAR HGB CONC 31.6 g/dL (32.4-35.8); MEAN CORPUSCULAR VOLUME 100.1 fL (80-100); MEAN PLATELET VOLUME 8.3 fL (7.4-10.4); MONOCYTES # (AUTO) 0.92 x10^3/uL (0.2-0.8); MONOCYTES % (AUTO) 10 % (2-9); NEUTROPHILS # (AUTO) 7.13 x10^3/uL (1.8-6.8); NEUTROPHILS % (AUTO) 80 % (42-75); PLATELET COUNT 247 x10^3/uL (130-400); RED BLOOD COUNT 2.92 x10^6/uL (3.82-5.3); RED CELL DISTRIBUTION WIDTH 18.9 % (9.6-15.2)
[2018-04-11 05:29] LABS: CHLORIDE 101 mmol/L (98-107)
[2018-04-11 05:41] LABS: ALANINE AMINOTRANSFERASE 11 U/L (12-78); ALBUMIN 2.4 g/dL (3.4-5.0); ALKALINE PHOSPHATASE 173 U/L (45-117); ANION GAP 10 mmol/L (5-15); BILIRUBIN,TOTAL 0.7 mg/dL (0.2-1.0); CALCIUM 8.6 mg/dL (8.5-10.1); CREATININE 2.42 mg/dL (0.55-1.02); TOTAL PROTEIN 7.5 g/dL (6.4-8.2)
[2018-04-11 08:07] VITALS: BP 97/66
[2018-04-11] MEDS: ASPIRIN 81 MG TABLET CHEW PO SCH (08:10)
[2018-04-11] MEDS: FOLIC ACID 1 MG TABLET PO SCH (08:10)
[2018-04-11] MEDS: GLIPizide ER 5 MG TABLET PO SCH (08:10)
[2018-04-11] MEDS: TEMPLATE NON-FORMULARY MED. (Umeclidinium Bromide (Incruse Ellipta) 1 PUFF) INH SCH (08:12)
[2018-04-11] MEDS: MIDODRINE 5 MG TABLET PO SCH ×3 (08:12→23:05)
[2018-04-11] MEDS: TADALAFIL 20 MG HOMEMEDPO SCH (08:12)
[2018-04-11] MEDS: IRON SUCROSE COMPLEX 100MG/5ML IV SCH (08:13)
[2018-04-11] MEDS: SODIUM CHLORIDE FLUSH 10ML SYR IVF SCH ×2 (08:13→23:05)
[2018-04-11] MEDS: FLUTICASONE/VILANTEROL 200-25MCG/INH INH SCH (08:13)
[2018-04-11 16:12] VITALS: BP 116/78
[2018-04-11 18:32] VITALS: BP 141/87
[2018-04-11] MEDS: HYDROCODONE BITARTRATE 20 MG HOMEMEDPO SCH (21:00)
[2018-04-11] MEDS: GABAPENTIN 300 MG CAPSULE PO SCH (23:04)
[2018-04-11] MEDS: LOVASTATIN 40 MG TABLET PO SCH (23:05)
[2018-04-12] MEDS: HYDROcodone/APAP 10/325 MG TABLET PO PRN ×2 (00:31→17:19)
[2018-04-12 01:32] VITALS: BP 99/69
[2018-04-12 06:32] VITALS: BP 99/63
[2018-04-12] MEDS: TADALAFIL 20 MG HOMEMEDPO SCH (09:00)
[2018-04-12] MEDS: TEMPLATE NON-FORMULARY MED. (Umeclidinium Bromide (Incruse Ellipta) 1 PUFF) INH SCH (09:00)
[2018-04-12] MEDS: SODIUM CHLORIDE FLUSH 10ML SYR IVF SCH ×2 (09:00→22:43)
[2018-04-12] MEDS: FLUTICASONE/VILANTEROL 200-25MCG/INH INH SCH (09:00)
[2018-04-12] MEDS: FOLIC ACID 1 MG TABLET PO SCH (09:11)
[2018-04-12] MEDS: MIDODRINE 5 MG TABLET PO SCH ×3 (09:11→21:00)
[2018-04-12] MEDS: ASPIRIN 81 MG TABLET CHEW PO SCH (09:11)
[2018-04-12] MEDS: GLIPizide ER 5 MG TABLET PO SCH (09:11)
[2018-04-12] MEDS ORDERED: FUROSEMIDE 40 MG/4 ML IVPush ONE (11:00)
[2018-04-12 14:18] VITALS: BP 107/71
[2018-04-12 18:34] VITALS: BP 114/77
[2018-04-12] MEDS: HYDROCODONE BITARTRATE 20 MG HOMEMEDPO SCH (21:00)
[2018-04-12] MEDS: LOVASTATIN 40 MG TABLET PO SCH (22:43)
[2018-04-12] MEDS: GABAPENTIN 300 MG CAPSULE PO SCH (22:43)
[2018-04-13 00:05] VITALS: BP 122/52
[2018-04-13] MEDS: HYDROcodone/APAP 10/325 MG TABLET PO PRN ×2 (03:05→12:05)
[2018-04-13 05:40] LABS: BASOPHILS # (AUTO) 0.05 x10^3/uL (0-0.1); BASOPHILS % (AUTO) 1 % (0-1); EOSINOPHILS # (AUTO) 0.18 x10^3/uL (0-0.4); EOSINOPHILS % (AUTO) 2 % (1-7); LYMPHOCYTES # (AUTO) 0.62 x10^3/uL (1-3.4); LYMPHOCYTES % (AUTO) 6 % (22-44); MD NO; MEAN CORPUSCULAR HGB CONC 31.2 g/dL (32.4-35.8); MEAN CORPUSCULAR VOLUME 99.4 fL (80-100); MEAN PLATELET VOLUME 8.4 fL (7.4-10.4); MONOCYTES # (AUTO) 0.75 x10^3/uL (0.2-0.8); MONOCYTES % (AUTO) 8 % (2-9); NEUTROPHILS # (AUTO) 8.13 x10^3/uL (1.8-6.8); NEUTROPHILS % (AUTO) 84 % (42-75); PLATELET COUNT 270 x10^3/uL (130-400); RED BLOOD COUNT 2.87 x10^6/uL (3.82-5.3)
[2018-04-13 05:44] LABS: CHLORIDE 100 mmol/L (98-107)
[2018-04-13 06:01] LABS: ALANINE AMINOTRANSFERASE 12 U/L (12-78); ALBUMIN 2.4 g/dL (3.4-5.0); ALKALINE PHOSPHATASE 191 U/L (45-117); ANION GAP 11 mmol/L (5-15); CREATININE 2.77 mg/dL (0.55-1.02); TOTAL PROTEIN 7.8 g/dL (6.4-8.2)
[2018-04-13 08:21] VITALS: BP 124/81
[2018-04-13] MEDS ORDERED: FUROSEMIDE 40 MG/4 ML IV SCH (08:30)
[2018-04-13] MEDS: GLIPizide ER 5 MG TABLET PO SCH (08:35)
[2018-04-13] MEDS: MIDODRINE 5 MG TABLET PO SCH (08:35)
[2018-04-13] MEDS: ASPIRIN 81 MG TABLET CHEW PO SCH (08:36)
[2018-04-13] MEDS: FOLIC ACID 1 MG TABLET PO SCH (08:36)
[2018-04-13] MEDS: TEMPLATE NON-FORMULARY MED. (Umeclidinium Bromide (Incruse Ellipta) 1 PUFF) INH SCH (08:37)
[2018-04-13] MEDS: FLUTICASONE/VILANTEROL 200-25MCG/INH INH SCH (08:37)
[2018-04-13] MEDS: TADALAFIL 20 MG HOMEMEDPO SCH (08:38)
[2018-04-13] MEDS: IRON SUCROSE COMPLEX 100MG/5ML IV SCH (08:42)
[2018-04-13] MEDS ORDERED: MIDO5TAB PO (08:49)
[2018-04-13] MEDS: SODIUM CHLORIDE FLUSH 10ML SYR IVF SCH (09:00)
== END 2018-04-13 14:20 | DRG 579 ==
LOC: ED 15:07 → EDIP 15:08 → ED 16:24 → 3NE 16:40 → 4WST 03-31 16:12
PROVIDERS: ADMIT Internal Medicine; ATTEND Hospitalist
PROC: 0JH63XZ Insertion of Tunneled Vascular Access Device into Chest Subcutaneous Tissue and Fascia, Percutaneous Approach (ICD-10-PCS; principal; 2018-03-31)
PROC: 02HV33Z Insertion of Infusion Device into Superior Vena Cava, Percutaneous Approach (ICD-10-PCS; 2018-03-31)
PROC: B5181ZA Fluoroscopy of Superior Vena Cava using Low Osmolar Contrast, Guidance (ICD-10-PCS; 2018-03-31)
PROC: B548ZZA Ultrasonography of Superior Vena Cava, Guidance (ICD-10-PCS; 2018-03-31)
PROC: 5A1D70Z Performance of Urinary Filtration, Intermittent, Less than 6 Hours Per Day (ICD-10-PCS; 2018-03-31)
PROC: 5A1D70Z Performance of Urinary Filtration, Intermittent, Less than 6 Hours Per Day (ICD-10-PCS; 2018-04-01)
PROC: 5A1D70Z Performance of Urinary Filtration, Intermittent, Less than 6 Hours Per Day (ICD-10-PCS; 2018-04-02)
PROC: 5A1D70Z Performance of Urinary Filtration, Intermittent, Less than 6 Hours Per Day (ICD-10-PCS; 2018-04-03)
PROC: 5A1D70Z Performance of Urinary Filtration, Intermittent, Less than 6 Hours Per Day (ICD-10-PCS; 2018-04-04)
PROC: 5A1D70Z Performance of Urinary Filtration, Intermittent, Less than 6 Hours Per Day (ICD-10-PCS; 2018-04-06)
PROC: 5A1D70Z Performance of Urinary Filtration, Intermittent, Less than 6 Hours Per Day (ICD-10-PCS; 2018-04-08)
DX: L03.116 Cellulitis of left lower limb (principal); N18.6 End stage renal disease; N17.9 Acute kidney failure, unspecified; E44.0 Moderate protein-calorie malnutrition; Z68.41 Body mass index [BMI] 40.0-44.9, adult; E87.2 Acidosis; I13.2 Hypertensive heart and chronic kidney disease with heart failure and with stage 5 chronic kidney disease, or end stage renal disease; I50.42 Chronic combined systolic (congestive) and diastolic (congestive) heart failure; J96.10 Chronic respiratory failure, unspecified whether with hypoxia or hypercapnia; N18.4 Chronic kidney disease, stage 4 (severe); L03.115 Cellulitis of right lower limb; E11.22 Type 2 diabetes mellitus with diabetic chronic kidney disease; E11.65 Type 2 diabetes mellitus with hyperglycemia; D50.9 Iron deficiency anemia, unspecified; D63.1 Anemia in chronic kidney disease; E11.649 Type 2 diabetes mellitus with hypoglycemia without coma; E78.5 Hyperlipidemia, unspecified; G89.29 Other chronic pain; I08.1 Rheumatic disorders of both mitral and tricuspid valves; I25.10 Atherosclerotic heart disease of native coronary artery without angina pectoris; I25.2 Old myocardial infarction; I27.20 Pulmonary hypertension, unspecified; J44.9 Chronic obstructive pulmonary disease, unspecified; K21.9 Gastro-esophageal reflux disease without esophagitis; M10.9 Gout, unspecified; L97.529 Non-pressure chronic ulcer of other part of left foot with unspecified severity; L40.9 Psoriasis, unspecified; M19.90 Unspecified osteoarthritis, unspecified site; M20.10 Hallux valgus (acquired), unspecified foot; E11.621 Type 2 diabetes mellitus with foot ulcer; M54.9 Dorsalgia, unspecified; Z60.2 Problems related to living alone; D63.8 Anemia in other chronic diseases classified elsewhere; E11.21 Type 2 diabetes mellitus with diabetic nephropathy; N25.0 Renal osteodystrophy; T50.2X5A Adverse effect of carbonic-anhydrase inhibitors, benzothiadiazides and other diuretics, initial encounter; Z79.84 Long term (current) use of oral hypoglycemic drugs; Z99.2 Dependence on renal dialysis; Z82.49 Family history of ischemic heart disease and other diseases of the circulatory system; Z83.3 Family history of diabetes mellitus; Z87.891 Personal history of nicotine dependence; Z95.5 Presence of coronary angioplasty implant and graft; Z91.89 Other specified personal risk factors, not elsewhere classified; Z99.81 Dependence on supplemental oxygen; Z90.89 Acquired absence of other organs; Z80.9 Family history of malignant neoplasm, unspecified
CPT/HCPCS: 36415; 36561; 76937; 77001; 80048; 80053; 80074; 80202; 81001; 82040; 82274; 82306; 82436; 82570; 82607; 82728; 82746; 83036; 83540; 83550; 83605; 83735; 83880; 83970; 84100; 84133; 84300; 84550; 85025; 85610; 85730; 86480; 86706; 87040; 87086; 93970; 96365; 99156; 99157; J0295; J0696; J1644; J1756; J1940; J2250; J2405; J3010; J3370; J3490; C1750; J1642; J7040

== ENCOUNTER 2018-07-31 12:33 | Inpatient (IN) | payer MEDICARE, OTHER ==
[~2018-07-31] VITALS: Ht 170.2 cm; Wt 97.5 kg
[~2018-07-31 12:33] MED LIST changes: +AMOX1TAB64 PO; +GLIP-164 PO; +METF500T17 PO; -METF500T4 PO; +MIDO5TAB PO
[2018-07-31 14:16] LABS: ALANINE AMINOTRANSFERASE 10 U/L (12-78); ALBUMIN 2.1 g/dL (3.4-5.0); ANION GAP 12 mmol/L (5-15); CALCIUM 8.8 mg/dL (8.5-10.1); CHLORIDE 98 mmol/L (98-107)
[2018-07-31 14:20] LABS: CREATININE 1.11 mg/dL (0.55-1.02); TOTAL PROTEIN 7.8 g/dL (6.4-8.2)
[2018-07-31 14:27] LABS: TROPONIN I 0.207 ng/mL (0.000-0.045)
[2018-07-31 14:33] LABS: ALKALINE PHOSPHATASE 140 U/L (45-117); BILIRUBIN,TOTAL 0.8 mg/dL (0.2-1.0)
[2018-07-31 15:18] LABS: BASOPHILS # (AUTO) 0.03 x10^3/uL (0-0.1); BASOPHILS % (AUTO) 0 % (0-1); EOSINOPHILS # (AUTO) 0.09 x10^3/uL (0-0.4); EOSINOPHILS % (AUTO) 1 % (1-7); LYMPHOCYTES # (AUTO) 0.71 x10^3/uL (1-3.4); LYMPHOCYTES % (AUTO) 7 % (22-44); MD MORPH REVIEW ONLY; MEAN CORPUSCULAR HEMOGLOBIN 32.7 pg (27.0-34.8); MEAN CORPUSCULAR HGB CONC 32.7 g/dL (32.4-35.8); MEAN CORPUSCULAR VOLUME 99.8 fL (80-100); MEAN PLATELET VOLUME 7.6 fL (7.4-10.4); MONOCYTES # (AUTO) 0.91 x10^3/uL (0.2-0.8); MONOCYTES % (AUTO) 8 % (2-9); NEUTROPHILS # (AUTO) 9.31 x10^3/uL (1.8-6.8); NEUTROPHILS % (AUTO) 84 % (42-75); PLATELET COUNT 339 x10^3/uL (130-400); RED BLOOD COUNT 2.43 x10^6/uL (3.82-5.3)
[2018-07-31] MEDS: HYDROcodone/APAP 10/325 MG TABLET PO PRN (15:20)
[2018-07-31] MEDS ORDERED: FURO80TA3 PO (15:24)
[2018-07-31] MEDS ORDERED: CYCL-259 PO (15:25)
[2018-07-31] MEDS ORDERED: MIDO5TAB PO (15:29)
[2018-07-31] MEDS ORDERED: ASPIRIN 81 MG TABLET CHEW PO ONE (15:30)
[2018-07-31] MEDS ORDERED: GABA-827 PO (15:30)
[2018-07-31] MEDS ORDERED: METO5TAB5 PO (15:32)
[2018-07-31] MEDS ORDERED: ATOR40TA78 PO (15:34)
[2018-07-31] MEDS ORDERED: POTA20TA6 PO (15:36)
[2018-07-31] MEDS ORDERED: ONDANSETRON 2MG/ML, 2ML IVPush PRN (16:00)
[2018-07-31] MEDS: CYCLOBENZAPRINE 10 MG TABLET PO SCH ×2 (16:00→21:09)
[2018-07-31] MEDS ORDERED: BISACODYL 10 MG SUPP PR PRN (16:00)
[2018-07-31] MEDS ORDERED: POLYETHYLENE GLYCOL 17 GM PACKET PO PRN (16:00)
[2018-07-31] MEDS ORDERED: ACETAMINOPHEN 325 MG TABLET PO ONE ×2 (16:00→21:00)
[2018-07-31] MEDS ORDERED: DIPHENHYDRAMINE 50 MG/ML, 1ML IVPush ONE ×2 (16:00→21:00)
[2018-07-31] MEDS ORDERED: ALBUTEROL SULFATE 2.5 MG/3 ML NPPB PRN (16:00)
[2018-07-31] MEDS ORDERED: DOCUSATE 100 MG CAPSULE PO PRN (16:00)
[2018-07-31 16:10] LABS: RED CELL DISTRIBUTION WIDTH 21.5 % (9.6-15.2)
[2018-07-31 16:11] LABS: ANISOCYTOSIS 1+; MICROCYTOSIS 1+; POLYCHROMASIA 1+
[2018-07-31 16:12] LABS: <PLATELET ESTIMATE> ADEQUATE; <PLT MORPHOLOGY> NORMAL PLT MORPH
[2018-07-31] MEDS ORDERED: ASPIRIN 81 MG TABLET CHEW ONE (16:47)
[2018-07-31] MEDS: MIDODRINE 5 MG TABLET PO SCH ×2 (17:49→21:09)
[2018-07-31 18:26] VITALS: BP 102/70
[2018-07-31 19:51] VITALS: BP 87/55
[2018-07-31] MEDS: HEPARIN 5,000 UNITS/ML, 1ML SQ SCH (20:36)
[2018-07-31] MEDS: FUROSEMIDE 80 MG TABLET PO SCH (21:00)
[2018-07-31] MEDS: GABAPENTIN 300 MG CAPSULE PO SCH (21:09)
[2018-07-31] MEDS: ATORVASTATIN 10 MG TABLET PO SCH (21:09)
[2018-07-31] MEDS: SODIUM CHLORIDE FLUSH 10ML SYR IVF SCH (21:10)
[2018-07-31 21:49] VITALS: BP 85/58
[2018-07-31 22:04] VITALS: BP 85/58
[2018-08-01] VITALS (7 sets, daily range): BP systolic 78–96; BP diastolic 53–69
[2018-08-01 00:55] LABS: TROPONIN I 0.198 ng/mL (0.000-0.045)
[2018-08-01] MEDS: ACETAMINOPHEN 325 MG TABLET PO PRN ×2 (01:01→20:20)
[2018-08-01 05:30] LABS: MEAN CORPUSCULAR HEMOGLOBIN 31.3 pg (27.0-34.8); MEAN CORPUSCULAR HGB CONC 31.5 g/dL (32.4-35.8); MEAN CORPUSCULAR VOLUME 99.3 fL (80-100); MEAN PLATELET VOLUME 7.3 fL (7.4-10.4); PLATELET COUNT 355 x10^3/uL (130-400); RED CELL DISTRIBUTION WIDTH 22.8 % (9.6-15.2)
[2018-08-01 05:32] LABS: CHLORIDE 99 mmol/L (98-107)
[2018-08-01 05:40] LABS: ALANINE AMINOTRANSFERASE 19 U/L (12-78); ALBUMIN 2.2 g/dL (3.4-5.0); ALKALINE PHOSPHATASE 157 U/L (45-117); ANION GAP 10 mmol/L (5-15); BILIRUBIN,TOTAL 0.6 mg/dL (0.2-1.0); CALCIUM 8.3 mg/dL (8.5-10.1); CHOL/HDL RATIO 2.4; CHOLESTEROL, TOTAL 80 mg/dL (140-239); CREATININE 1.69 mg/dL (0.55-1.02); HDL CHOL % 43 % (28-40); HDL CHOLESTEROL (DIRECT) 34 mg/dL (40-60); LDL CHOLESTEROL,CALCULATED 22 mg/dL (54-169); LDL/HDL RATIO 0.6 (0.5-3.0); TOTAL PROTEIN 7.9 g/dL (6.4-8.2); TRIGLYCERIDES 122 mg/dL (50-200); VLDL CHOLESTEROL 24 mg/dL (0-25)
[2018-08-01 06:16] LABS: ANISOCYTOSIS 2+; MD MORPH REVIEW ONLY; POLYCHROMASIA 1+
[2018-08-01 06:17] LABS: <PLATELET ESTIMATE> ADEQUATE; <PLT MORPHOLOGY> NORMAL PLT MORPH; BASOPHILS # (AUTO) 0.06 x10^3/uL (0-0.1); BASOPHILS % (AUTO) 1 % (0-1); EOSINOPHILS # (AUTO) 0.19 x10^3/uL (0-0.4); EOSINOPHILS % (AUTO) 2 % (1-7); LYMPHOCYTES # (AUTO) 0.94 x10^3/uL (1-3.4); LYMPHOCYTES % (AUTO) 10 % (22-44); MONOCYTES % (AUTO) 10 % (2-9); NEUTROPHILS # (AUTO) 7.31 x10^3/uL (1.8-6.8); NEUTROPHILS % (AUTO) 78 % (42-75)
[2018-08-01 06:18] LABS: HYPOCHROMIA 1+
[2018-08-01] MEDS: HEPARIN 5,000 UNITS/ML, 1ML SQ SCH ×3 (08:00→16:00)
[2018-08-01] MEDS: METOLAZONE 5 MG TABLET PO SCH (09:00)
[2018-08-01] MEDS: SODIUM CHLORIDE FLUSH 10ML SYR IVF SCH ×2 (09:00→20:21)
[2018-08-01] MEDS: TEMPLATE NON-FORMULARY MED. (Tadalafil** (Adcirca**) 40 MG) PO SCH (09:00)
[2018-08-01] MEDS: TEMPLATE NON-FORMULARY MED. (Umeclidinium Bromide (Incruse Ellipta) 1 PUFF) INH SCH (09:00)
[2018-08-01] MEDS: FUROSEMIDE 80 MG TABLET PO SCH ×2 (09:00→20:21)
[2018-08-01] MEDS: MIDODRINE 5 MG TABLET PO SCH ×2 (09:00→20:19)
[2018-08-01] MEDS: POTASSIUM CHLORIDE 20 MEQ TAB.ER.PRT PO SCH (10:00)
[2018-08-01] MEDS: FOLIC ACID 1 MG TABLET PO SCH (10:00)
[2018-08-01] MEDS ORDERED: SODIUM CHLORIDE 0.9%, 500ML IVBOLUS ONE (10:00)
[2018-08-01] MEDS: ALLOPURINOL 100 MG TABLET PO SCH (10:00)
[2018-08-01] MEDS: CYCLOBENZAPRINE 10 MG TABLET PO SCH ×3 (10:00→20:19)
[2018-08-01] MEDS: GABAPENTIN 300 MG CAPSULE PO SCH ×2 (10:01→20:18)
[2018-08-01] MEDS: ASPIRIN 81 MG TABLET CHEW PO SCH (10:01)
[2018-08-01] MEDS: FLUTICASONE/VILANTEROL 200-25MCG/INH INH SCH (12:04)
[2018-08-01] MEDS: ATORVASTATIN 10 MG TABLET PO SCH (20:19)
[2018-08-02 01:20] VITALS: BP 95/65
[2018-08-02 05:26] LABS: MEAN CORPUSCULAR HEMOGLOBIN 31.9 pg (27.0-34.8); MEAN CORPUSCULAR VOLUME 99.6 fL (80-100); MEAN PLATELET VOLUME 7.5 fL (7.4-10.4); PLATELET COUNT 361 x10^3/uL (130-400); RED BLOOD COUNT 2.49 x10^6/uL (3.82-5.3); RED CELL DISTRIBUTION WIDTH 22.6 % (9.6-15.2)
[2018-08-02 05:34] LABS: ANION GAP 9 mmol/L (5-15); CALCIUM 8.9 mg/dL (8.5-10.1); CHLORIDE 101 mmol/L (98-107)
[2018-08-02 05:43] LABS: TROPONIN I 0.201 ng/mL (0.000-0.045)
[2018-08-02 05:47] LABS: BASOPHILS # (AUTO) 0.07 x10^3/uL (0-0.1); BASOPHILS % (AUTO) 1 % (0-1); EOSINOPHILS % (AUTO) 2 % (1-7); LYMPHOCYTES # (AUTO) 0.97 x10^3/uL (1-3.4); LYMPHOCYTES % (AUTO) 10 % (22-44); MD SCAN; MONOCYTES # (AUTO) 0.85 x10^3/uL (0.2-0.8); MONOCYTES % (AUTO) 9 % (2-9); NEUTROPHILS # (AUTO) 7.57 x10^3/uL (1.8-6.8); NEUTROPHILS % (AUTO) 78 % (42-75)
[2018-08-02] MEDS: HEPARIN 5,000 UNITS/ML, 1ML SQ SCH ×4 (07:24→23:06)
[2018-08-02] MEDS: TEMPLATE NON-FORMULARY MED. (Umeclidinium Bromide (Incruse Ellipta) 1 PUFF) INH SCH (07:25)
[2018-08-02] MEDS: TEMPLATE NON-FORMULARY MED. (Tadalafil** (Adcirca**) 40 MG) PO SCH (07:25)
[2018-08-02] MEDS: FLUTICASONE/VILANTEROL 200-25MCG/INH INH SCH (07:59)
[2018-08-02 08:00] VITALS: BP 98/74
[2018-08-02] MEDS: FOLIC ACID 1 MG TABLET PO SCH (08:00)
[2018-08-02] MEDS: SODIUM CHLORIDE FLUSH 10ML SYR IVF SCH ×2 (08:00→21:36)
[2018-08-02] MEDS: METOLAZONE 5 MG TABLET PO SCH (08:00)
[2018-08-02] MEDS: POTASSIUM CHLORIDE 20 MEQ TAB.ER.PRT PO SCH (08:00)
[2018-08-02] MEDS: ALLOPURINOL 100 MG TABLET PO SCH (08:00)
[2018-08-02] MEDS: MIDODRINE 5 MG TABLET PO SCH ×2 (08:00→21:36)
[2018-08-02] MEDS: FUROSEMIDE 80 MG TABLET PO SCH ×2 (08:00→21:00)
[2018-08-02] MEDS: GABAPENTIN 300 MG CAPSULE PO SCH ×2 (08:00→21:36)
[2018-08-02] MEDS: ASPIRIN 81 MG TABLET CHEW PO SCH (08:00)
[2018-08-02] MEDS: CYCLOBENZAPRINE 10 MG TABLET PO SCH ×3 (08:00→21:36)
[2018-08-02] MEDS ORDERED: REGADENOSON 0.4 MG/5 ML SYRINGE ONE (08:11)
[2018-08-02 08:46] LABS: CULTURE INDICATED? YES; MICROSCOPIC INDICATED
[2018-08-02] MEDS ORDERED: CEFTRIAXONE 1,000 MG in SODIUM CHLORIDE 0.9% 50 ML IV SCH (10:30)
[2018-08-02 11:29] VITALS: BP 117/80
[2018-08-02] MEDS: HYDROcodone/APAP 10/325 MG TABLET PO PRN ×2 (11:32→20:04)
[2018-08-02 14:00] VITALS: BP 117/81
[2018-08-02] MEDS: ATORVASTATIN 10 MG TABLET PO SCH (21:36)
[2018-08-02 21:40] VITALS: BP 107/75
[2018-08-03 02:11] VITALS: BP 85/60
[2018-08-03 05:23] LABS: ANION GAP 8 mmol/L (5-15); CALCIUM 8.7 mg/dL (8.5-10.1); CHLORIDE 100 mmol/L (98-107); CREATININE 2.94 mg/dL (0.55-1.02)
[2018-08-03 05:27] LABS: TROPONIN I 0.211 ng/mL (0.000-0.045)
[2018-08-03 06:39] VITALS: BP 95/61
[2018-08-03] MEDS: HEPARIN 5,000 UNITS/ML, 1ML SQ SCH ×2 (08:00→16:00)
[2018-08-03] MEDS: POTASSIUM CHLORIDE 20 MEQ TAB.ER.PRT PO SCH (09:00)
[2018-08-03] MEDS: METOLAZONE 5 MG TABLET PO SCH (09:00)
[2018-08-03] MEDS: TEMPLATE NON-FORMULARY MED. (Umeclidinium Bromide (Incruse Ellipta) 1 PUFF) INH SCH (09:00)
[2018-08-03] MEDS: TEMPLATE NON-FORMULARY MED. (Tadalafil** (Adcirca**) 40 MG) PO SCH (09:00)
[2018-08-03] MEDS: SODIUM CHLORIDE FLUSH 10ML SYR IVF SCH ×2 (09:00→21:00)
[2018-08-03] MEDS: FUROSEMIDE 80 MG TABLET PO SCH ×2 (09:00→21:00)
[2018-08-03] MEDS: FOLIC ACID 1 MG TABLET PO SCH (09:05)
[2018-08-03] MEDS: ASPIRIN 81 MG TABLET CHEW PO SCH (09:05)
[2018-08-03] MEDS: ALLOPURINOL 100 MG TABLET PO SCH (09:05)
[2018-08-03] MEDS: CYCLOBENZAPRINE 10 MG TABLET PO SCH ×3 (09:05→20:57)
[2018-08-03] MEDS: MIDODRINE 5 MG TABLET PO SCH ×2 (09:05→20:59)
[2018-08-03] MEDS: GABAPENTIN 300 MG CAPSULE PO SCH ×2 (09:05→20:57)
[2018-08-03] MEDS: HYDROcodone/APAP 10/325 MG TABLET PO PRN (09:08)
[2018-08-03] MEDS: FLUTICASONE/VILANTEROL 200-25MCG/INH INH SCH (09:08)
[2018-08-03] MEDS: CEFTRIAXONE PMX 1GM/50ML 50 ML IV SCH ×2 (10:30→16:57)
[2018-08-03] MEDS ORDERED: PHARMACOKINETIC MONITORING MC PRN (13:30)
[2018-08-03] MEDS ORDERED: PHARMACOKINETIC CONSULTATION MC ONE (13:30)
[2018-08-03] MEDS ORDERED: VANCOMYCIN PER PHARMACY MC PRN (13:30)
[2018-08-03 13:46] VITALS: BP 99/65
[2018-08-03] MEDS ORDERED: VANCOMYCIN 1,600 MG in SODIUM CHLORIDE 0.9% 250 ML IV ONE (14:00)
[2018-08-03] MEDS ORDERED: ARANESP 100 MCG/ML **ESRD SQ SCH (16:30)
[2018-08-03 16:42] VITALS: BP 103/75
[2018-08-03 19:23] VITALS: BP 103/69
[2018-08-03 20:45] VITALS: BP 93/58
[2018-08-03] MEDS: ATORVASTATIN 10 MG TABLET PO SCH (20:57)
[2018-08-04 02:17] VITALS: BP 126/79
[2018-08-04 04:49] LABS: BASOPHILS # (AUTO) 0.03 x10^3/uL (0-0.1); BASOPHILS % (AUTO) 0 % (0-1); EOSINOPHILS # (AUTO) 0.14 x10^3/uL (0-0.4); EOSINOPHILS % (AUTO) 1 % (1-7); LYMPHOCYTES # (AUTO) 0.83 x10^3/uL (1-3.4); LYMPHOCYTES % (AUTO) 8 % (22-44); MD NO; MEAN CORPUSCULAR HEMOGLOBIN 32.6 pg (27.0-34.8); MEAN CORPUSCULAR VOLUME 98.7 fL (80-100); MEAN PLATELET VOLUME 7.4 fL (7.4-10.4); MONOCYTES # (AUTO) 0.41 x10^3/uL (0.2-0.8); MONOCYTES % (AUTO) 4 % (2-9); NEUTROPHILS # (AUTO) 8.89 x10^3/uL (1.8-6.8); NEUTROPHILS % (AUTO) 86 % (42-75); PLATELET COUNT 378 x10^3/uL (130-400); RED BLOOD COUNT 2.32 x10^6/uL (3.82-5.3); RED CELL DISTRIBUTION WIDTH 22.1 % (9.6-15.2)
[2018-08-04 05:06] LABS: ANION GAP 10 mmol/L (5-15); CALCIUM 8.4 mg/dL (8.5-10.1); CHLORIDE 101 mmol/L (98-107); CREATININE 2.26 mg/dL (0.55-1.02)
[2018-08-04] MEDS: HEPARIN 5,000 UNITS/ML, 1ML SQ SCH ×3 (08:00→16:00)
[2018-08-04 08:26] VITALS: BP 121/72
[2018-08-04] MEDS: TEMPLATE NON-FORMULARY MED. (Tadalafil** (Adcirca**) 40 MG) PO SCH (09:00)
[2018-08-04] MEDS: TEMPLATE NON-FORMULARY MED. (Umeclidinium Bromide (Incruse Ellipta) 1 PUFF) INH SCH (09:00)
[2018-08-04 09:48] VITALS: BP 111/77
[2018-08-04] MEDS: SODIUM CHLORIDE FLUSH 10ML SYR IVF SCH ×2 (09:50→21:23)
[2018-08-04] MEDS: FOLIC ACID 1 MG TABLET PO SCH (09:51)
[2018-08-04] MEDS: CYCLOBENZAPRINE 10 MG TABLET PO SCH ×3 (09:51→21:22)
[2018-08-04] MEDS: MIDODRINE 5 MG TABLET PO SCH ×3 (09:51→21:22)
[2018-08-04] MEDS: FLUTICASONE/VILANTEROL 200-25MCG/INH INH SCH (09:51)
[2018-08-04] MEDS: ALLOPURINOL 100 MG TABLET PO SCH (09:51)
[2018-08-04] MEDS: ASPIRIN 81 MG TABLET CHEW PO SCH (09:51)
[2018-08-04] MEDS: GABAPENTIN 300 MG CAPSULE PO SCH ×2 (09:51→21:21)
[2018-08-04] MEDS: POTASSIUM CHLORIDE 20 MEQ TAB.ER.PRT PO SCH (09:53)
[2018-08-04] MEDS: METOLAZONE 5 MG TABLET PO SCH (09:54)
[2018-08-04] MEDS: FUROSEMIDE 80 MG TABLET PO SCH (09:54)
[2018-08-04] MEDS: HYDROcodone/APAP 10/325 MG TABLET PO PRN ×2 (10:09→18:08)
[2018-08-04] MEDS: CEFTRIAXONE PMX 1GM/50ML 50 ML IV SCH (10:36)
[2018-08-04 14:16] VITALS: BP 99/68
[2018-08-04 20:10] VITALS: BP 113/74
[2018-08-04] MEDS: ATORVASTATIN 10 MG TABLET PO SCH (21:21)
[2018-08-04 23:13] LABS: OCCULT BLOOD POSITIVE (NEGATIVE)
[2018-08-05 01:42] VITALS: BP 103/71
[2018-08-05 05:15] LABS: ANION GAP 10 mmol/L (5-15); CALCIUM 9.1 mg/dL (8.5-10.1); CHLORIDE 96 mmol/L (98-107)
[2018-08-05 05:21] LABS: CREATININE 2.74 mg/dL (0.55-1.02); VANCOMYCIN,RANDOM 22.8 mcg/mL
[2018-08-05 05:27] LABS: % IRON SATURATION 30 % (20-55); IRON LEVEL 66 mcg/dL (50-170); TOTAL IRON BINDING CAPACITY 219 mcg/dL (250-450)
[2018-08-05 05:32] LABS: BASOPHILS % (AUTO) 1 % (0-1); EOSINOPHILS # (AUTO) 0.21 x10^3/uL (0-0.4); EOSINOPHILS % (AUTO) 2 % (1-7); LYMPHOCYTES # (AUTO) 0.78 x10^3/uL (1-3.4); LYMPHOCYTES % (AUTO) 5 % (22-44); MD SCAN; MEAN CORPUSCULAR HEMOGLOBIN 31.5 pg (27.0-34.8); MEAN CORPUSCULAR HGB CONC 31.7 g/dL (32.4-35.8); MEAN CORPUSCULAR VOLUME 99.4 fL (80-100); MEAN PLATELET VOLUME 7.2 fL (7.4-10.4); MONOCYTES % (AUTO) 4 % (2-9); NEUTROPHILS # (AUTO) 12.78 x10^3/uL (1.8-6.8); NEUTROPHILS % (AUTO) 88 % (42-75); PLATELET COUNT 475 x10^3/uL (130-400); RED BLOOD COUNT 2.82 x10^6/uL (3.82-5.3); RED CELL DISTRIBUTION WIDTH 21.5 % (9.6-15.2)
[2018-08-05 06:59] VITALS: BP 96/65
[2018-08-05] MEDS: CYCLOBENZAPRINE 10 MG TABLET PO SCH ×3 (12:17→21:28)
[2018-08-05] MEDS: MIDODRINE 5 MG TABLET PO SCH ×4 (12:19→21:29)
[2018-08-05 12:40] VITALS: BP 87/54
[2018-08-05] MEDS: GABAPENTIN 300 MG CAPSULE PO SCH ×2 (12:45→21:29)
[2018-08-05] MEDS: FOLIC ACID 1 MG TABLET PO SCH (12:45)
[2018-08-05] MEDS: ALLOPURINOL 100 MG TABLET PO SCH (12:46)
[2018-08-05] MEDS: ASPIRIN 81 MG TABLET CHEW PO SCH (12:46)
[2018-08-05] MEDS: CEFTRIAXONE PMX 1GM/50ML 50 ML IV SCH (12:46)
[2018-08-05] MEDS: POTASSIUM CHLORIDE 20 MEQ TAB.ER.PRT PO SCH (12:46)
[2018-08-05] MEDS: SODIUM CHLORIDE FLUSH 10ML SYR IVF SCH ×2 (12:47→21:30)
[2018-08-05] MEDS: TEMPLATE NON-FORMULARY MED. (Tadalafil** (Adcirca**) 40 MG) PO SCH (12:47)
[2018-08-05] MEDS: FLUTICASONE/VILANTEROL 200-25MCG/INH INH SCH (12:47)
[2018-08-05] MEDS: TEMPLATE NON-FORMULARY MED. (Umeclidinium Bromide (Incruse Ellipta) 1 PUFF) INH SCH (12:48)
[2018-08-05] MEDS: HEPARIN 5,000 UNITS/ML, 1ML SQ SCH ×3 (12:48→16:12)
[2018-08-05] MEDS: ACETAMINOPHEN 325 MG TABLET PO PRN (13:12)
[2018-08-05 14:44] VITALS: BP 92/61
[2018-08-05] MEDS: HYDROcodone/APAP 10/325 MG TABLET PO PRN (14:55)
[2018-08-05 16:10] VITALS: BP 96/66
[2018-08-05 19:41] VITALS: BP 100/70
[2018-08-05] MEDS: ATORVASTATIN 10 MG TABLET PO SCH (21:29)
[2018-08-06] VITALS (11 sets, daily range): BP systolic 95–131; BP diastolic 64–88
[2018-08-06 05:45] LABS: BASOPHILS # (AUTO) 0.02 x10^3/uL (0-0.1); BASOPHILS % (AUTO) 0 % (0-1); EOSINOPHILS # (AUTO) 0.22 x10^3/uL (0-0.4); EOSINOPHILS % (AUTO) 2 % (1-7); LYMPHOCYTES # (AUTO) 1.19 x10^3/uL (1-3.4); LYMPHOCYTES % (AUTO) 8 % (22-44); MD NO; MEAN CORPUSCULAR HEMOGLOBIN 32.5 pg (27.0-34.8); MEAN CORPUSCULAR HGB CONC 32.7 g/dL (32.4-35.8); MEAN CORPUSCULAR VOLUME 99.4 fL (80-100); MEAN PLATELET VOLUME 7.1 fL (7.4-10.4); MONOCYTES # (AUTO) 0.75 x10^3/uL (0.2-0.8); MONOCYTES % (AUTO) 5 % (2-9); NEUTROPHILS # (AUTO) 12.65 x10^3/uL (1.8-6.8); NEUTROPHILS % (AUTO) 85 % (42-75); PLATELET COUNT 420 x10^3/uL (130-400); RED BLOOD COUNT 2.45 x10^6/uL (3.82-5.3); RED CELL DISTRIBUTION WIDTH 20.2 % (9.6-15.2)
[2018-08-06 05:52] LABS: CHLORIDE 98 mmol/L (98-107)
[2018-08-06 06:12] LABS: ANION GAP 10 mmol/L (5-15); CALCIUM 8.6 mg/dL (8.5-10.1); CREATININE 2.31 mg/dL (0.55-1.02)
[2018-08-06] MEDS ORDERED: ACETAMINOPHEN 325 MG TABLET PO ONE (08:30)
[2018-08-06] MEDS ORDERED: DIPHENHYDRAMINE 50 MG/ML, 1ML IVPush ONE (08:30)
[2018-08-06] MEDS: POTASSIUM CHLORIDE 20 MEQ TAB.ER.PRT PO SCH (09:35)
[2018-08-06] MEDS: MIDODRINE 5 MG TABLET PO SCH ×3 (09:35→21:44)
[2018-08-06] MEDS: HEPARIN 5,000 UNITS/ML, 1ML SQ SCH ×4 (09:35→23:57)
[2018-08-06] MEDS: FLUTICASONE/VILANTEROL 200-25MCG/INH INH SCH (09:35)
[2018-08-06] MEDS: ALLOPURINOL 100 MG TABLET PO SCH (09:36)
[2018-08-06] MEDS: CYCLOBENZAPRINE 10 MG TABLET PO SCH ×3 (09:36→20:59)
[2018-08-06] MEDS: FOLIC ACID 1 MG TABLET PO SCH (09:36)
[2018-08-06] MEDS: ASPIRIN 81 MG TABLET CHEW PO SCH (09:36)
[2018-08-06] MEDS: GABAPENTIN 300 MG CAPSULE PO SCH ×2 (09:36→20:59)
[2018-08-06] MEDS: TEMPLATE NON-FORMULARY MED. (Tadalafil** (Adcirca**) 40 MG) PO SCH (09:38)
[2018-08-06] MEDS: SODIUM CHLORIDE FLUSH 10ML SYR IVF SCH ×2 (09:38→20:59)
[2018-08-06] MEDS: TEMPLATE NON-FORMULARY MED. (Umeclidinium Bromide (Incruse Ellipta) 1 PUFF) INH SCH (09:38)
[2018-08-06] MEDS: HYDROcodone/APAP 10/325 MG TABLET PO PRN ×2 (11:53→20:59)
[2018-08-06] MEDS ORDERED: MIDO5TAB PO (14:17)
[2018-08-06] MEDS ORDERED: DARB100V SQ (14:17)
[2018-08-06] MEDS ORDERED: MAGNESIUM SULFATE PMX 2GM/50ML 50 ML IV ONE ×2 (14:30→18:00)
[2018-08-06] MEDS ORDERED: VANCOMYCIN 1,600 MG in SODIUM CHLORIDE 0.9% 250 ML IV ONE (15:00)
[2018-08-06] MEDS: ATORVASTATIN 10 MG TABLET PO SCH (20:59)
[2018-08-07 03:31] VITALS: BP 95/68
[2018-08-07 05:12] LABS: BASOPHILS # (AUTO) 0.03 x10^3/uL (0-0.1); BASOPHILS % (AUTO) 0 % (0-1); EOSINOPHILS # (AUTO) 0.23 x10^3/uL (0-0.4); EOSINOPHILS % (AUTO) 2 % (1-7); LYMPHOCYTES # (AUTO) 1.03 x10^3/uL (1-3.4); LYMPHOCYTES % (AUTO) 8 % (22-44); MD NO; MEAN CORPUSCULAR HGB CONC 32.9 g/dL (32.4-35.8); MEAN CORPUSCULAR VOLUME 97.2 fL (80-100); MEAN PLATELET VOLUME 7.2 fL (7.4-10.4); MONOCYTES # (AUTO) 0.84 x10^3/uL (0.2-0.8); MONOCYTES % (AUTO) 6 % (2-9); NEUTROPHILS # (AUTO) 10.87 x10^3/uL (1.8-6.8); NEUTROPHILS % (AUTO) 84 % (42-75); PLATELET COUNT 388 x10^3/uL (130-400); RED BLOOD COUNT 2.72 x10^6/uL (3.82-5.3); RED CELL DISTRIBUTION WIDTH 21.6 % (9.6-15.2)
[2018-08-07 05:17] LABS: ANION GAP 9 mmol/L (5-15); CALCIUM 8.5 mg/dL (8.5-10.1); CHLORIDE 97 mmol/L (98-107); CREATININE 2.66 mg/dL (0.55-1.02)
[2018-08-07 07:48] VITALS: BP 135/78
[2018-08-07] MEDS: HEPARIN 5,000 UNITS/ML, 1ML SQ SCH ×2 (08:00→16:00)
[2018-08-07] MEDS: TEMPLATE NON-FORMULARY MED. (Umeclidinium Bromide (Incruse Ellipta) 1 PUFF) INH SCH (08:02)
[2018-08-07] MEDS: TEMPLATE NON-FORMULARY MED. (Tadalafil** (Adcirca**) 40 MG) PO SCH (08:03)
[2018-08-07] MEDS: GABAPENTIN 300 MG CAPSULE PO SCH ×2 (12:17→21:02)
[2018-08-07] MEDS: MIDODRINE 5 MG TABLET PO SCH ×3 (12:18→21:03)
[2018-08-07] MEDS: HYDROcodone/APAP 10/325 MG TABLET PO PRN ×2 (12:18→21:02)
[2018-08-07] MEDS: ALLOPURINOL 100 MG TABLET PO SCH (12:19)
[2018-08-07] MEDS: ASPIRIN 81 MG TABLET CHEW PO SCH (12:19)
[2018-08-07] MEDS: CYCLOBENZAPRINE 10 MG TABLET PO SCH ×3 (12:19→21:01)
[2018-08-07 12:30] VITALS: BP 92/63
[2018-08-07] MEDS: FLUTICASONE/VILANTEROL 200-25MCG/INH INH SCH (13:00)
[2018-08-07] MEDS ORDERED: VANCOMYCIN 1,600 MG in SODIUM CHLORIDE 0.9% 250 ML IV ONE (13:00)
[2018-08-07] MEDS: FOLIC ACID 1 MG TABLET PO SCH (13:00)
[2018-08-07] MEDS: SODIUM CHLORIDE FLUSH 10ML SYR IVF SCH ×2 (13:01→21:01)
[2018-08-07 16:00] VITALS: BP 91/52
[2018-08-07 20:36] VITALS: BP 103/72
[2018-08-07] MEDS: ATORVASTATIN 10 MG TABLET PO SCH (21:02)
[2018-08-08 00:58] VITALS: BP 110/75
[2018-08-08] MEDS: TEMPLATE NON-FORMULARY MED. (Tadalafil** (Adcirca**) 40 MG) PO SCH (07:41)
[2018-08-08] MEDS: TEMPLATE NON-FORMULARY MED. (Umeclidinium Bromide (Incruse Ellipta) 1 PUFF) INH SCH (07:41)
[2018-08-08] MEDS: HEPARIN 5,000 UNITS/ML, 1ML SQ SCH ×3 (07:53→16:00)
[2018-08-08 07:58] VITALS: BP 104/76
[2018-08-08] MEDS: FLUTICASONE/VILANTEROL 200-25MCG/INH INH SCH (09:00)
[2018-08-08] MEDS: CYCLOBENZAPRINE 10 MG TABLET PO SCH ×2 (09:42→16:00)
[2018-08-08] MEDS: ASPIRIN 81 MG TABLET CHEW PO SCH (09:43)
[2018-08-08] MEDS: GABAPENTIN 300 MG CAPSULE PO SCH (09:43)
[2018-08-08] MEDS: ALLOPURINOL 100 MG TABLET PO SCH (09:43)
[2018-08-08] MEDS: FOLIC ACID 1 MG TABLET PO SCH (09:43)
[2018-08-08] MEDS: MIDODRINE 5 MG TABLET PO SCH ×2 (09:43→16:00)
[2018-08-08] MEDS: SODIUM CHLORIDE FLUSH 10ML SYR IVF SCH (09:44)
[2018-08-08 13:58] VITALS: BP 110/77
[2018-08-08] MEDS ORDERED: UMEC1DIS PO (21:45)
== END 2018-08-08 18:58 | disposition home or self-care (01) | DRG 682 ==
LOC: ED 15:09 → EDIP 15:11 → 5SO 18:30
PROVIDERS: ADMIT Internal Medicine; ATTEND Internal Medicine
PROC: 30233N1 Transfusion of Nonautologous Red Blood Cells into Peripheral Vein, Percutaneous Approach (ICD-10-PCS; principal; 2018-07-31)
PROC: 5A1D70Z Performance of Urinary Filtration, Intermittent, Less than 6 Hours Per Day (ICD-10-PCS; 2018-08-03)
PROC: 5A1D70Z Performance of Urinary Filtration, Intermittent, Less than 6 Hours Per Day (ICD-10-PCS; 2018-08-05)
PROC: 5A1D70Z Performance of Urinary Filtration, Intermittent, Less than 6 Hours Per Day (ICD-10-PCS; 2018-08-07)
DX: N18.6 End stage renal disease (principal); E43 Unspecified severe protein-calorie malnutrition; I13.2 Hypertensive heart and chronic kidney disease with heart failure and with stage 5 chronic kidney disease, or end stage renal disease; N39.0 Urinary tract infection, site not specified; I50.22 Chronic systolic (congestive) heart failure; J96.10 Chronic respiratory failure, unspecified whether with hypoxia or hypercapnia; J98.11 Atelectasis; E87.1 Hypo-osmolality and hyponatremia; I42.9 Cardiomyopathy, unspecified; D63.1 Anemia in chronic kidney disease; Z99.2 Dependence on renal dialysis; Z68.33 Body mass index [BMI] 33.0-33.9, adult; B95.2 Enterococcus as the cause of diseases classified elsewhere; E11.22 Type 2 diabetes mellitus with diabetic chronic kidney disease; E11.65 Type 2 diabetes mellitus with hyperglycemia; E78.5 Hyperlipidemia, unspecified; I25.10 Atherosclerotic heart disease of native coronary artery without angina pectoris; I27.20 Pulmonary hypertension, unspecified; I95.89 Other hypotension; J44.9 Chronic obstructive pulmonary disease, unspecified; K21.9 Gastro-esophageal reflux disease without esophagitis; N25.0 Renal osteodystrophy; I25.2 Old myocardial infarction; Z79.84 Long term (current) use of oral hypoglycemic drugs; Z82.49 Family history of ischemic heart disease and other diseases of the circulatory system; Z83.3 Family history of diabetes mellitus; Z86.19 Personal history of other infectious and parasitic diseases; Z87.891 Personal history of nicotine dependence; Z95.5 Presence of coronary angioplasty implant and graft; Z99.81 Dependence on supplemental oxygen; Z90.89 Acquired absence of other organs; Z80.9 Family history of malignant neoplasm, unspecified
CPT/HCPCS: 36415; 36430; 71045; 78452; 80048; 80053; 80061; 80202; 81001; 82272; 82728; 83540; 83550; 83605; 83735; 83880; 84100; 84484; 85014; 85018; 85025; 86704; 86706; 86803; 86850; 86900; 86923; 87040; 87077; 87086; 87186; 87340; 93005; 93017; 93306; G0378; J0696; J0882; J2785; J3370; A9502; C9898; J1200; J3475; J7040; J7050; P9016

== ENCOUNTER 2018-08-08 21:31 | Emergency (ER) | payer MEDICARE ==
[~2018-08-08] VITALS: Ht 170.2 cm; Wt 97.0 kg
[~2018-08-08 21:31] MED LIST changes: +ATOR40TA78 PO; +CYCL-259 PO; +DARB100V SQ; +GABA-827 PO; +METO5TAB5 PO; +POTA20TA6 PO
[2018-08-08] MEDS ORDERED: UMEC1DIS PO (21:45)
[2018-08-08] MEDS ORDERED: ACETAMINOPHEN 500 MG TABLET ONE (22:29)
[2018-08-08] MEDS ORDERED: ACETAMINOPHEN 500 MG TABLET PO ONE (22:30)
[2018-08-08 22:52] LABS: BASOPHILS # (AUTO) 0.01 x10^3/uL (0-0.1); BASOPHILS % (AUTO) 0 % (0-1); EOSINOPHILS # (AUTO) 0.06 x10^3/uL (0-0.4); EOSINOPHILS % (AUTO) 1 % (1-7); LYMPHOCYTES # (AUTO) 0.63 x10^3/uL (1-3.4); LYMPHOCYTES % (AUTO) 5 % (22-44); MD NO; MEAN CORPUSCULAR HEMOGLOBIN 31.2 pg (27.0-34.8); MEAN CORPUSCULAR VOLUME 97.5 fL (80-100); MEAN PLATELET VOLUME 6.5 fL (7.4-10.4); MONOCYTES # (AUTO) 0.57 x10^3/uL (0.2-0.8); MONOCYTES % (AUTO) 5 % (2-9); NEUTROPHILS # (AUTO) 11.37 x10^3/uL (1.8-6.8); NEUTROPHILS % (AUTO) 90 % (42-75); PLATELET COUNT 444 x10^3/uL (130-400); RED CELL DISTRIBUTION WIDTH 20.6 % (9.6-15.2)
[2018-08-08 23:01] VITALS: BP 161/70
[2018-08-08 23:09] LABS: INTERNATIONAL NORMALIZED RATIO 1.13 (0.93-1.1); PROTHROMBIN TIME 11.6 Seconds (9.6-11.5)
== END 2018-08-08 23:17 | disposition short-term general hospital (02) ==
LOC: ED 22:52
DX: S06.340A Traumatic hemorrhage of right cerebrum without loss of consciousness, initial encounter (principal); I11.0 Hypertensive heart disease with heart failure; I50.9 Heart failure, unspecified; E11.9 Type 2 diabetes mellitus without complications; J44.9 Chronic obstructive pulmonary disease, unspecified; Z87.891 Personal history of nicotine dependence; W01.0XXA Fall on same level from slipping, tripping and stumbling without subsequent striking against object, initial encounter; Y93.01 Activity, walking, marching and hiking; Y99.8 Other external cause status; Y92.481 Parking lot as the place of occurrence of the external cause
CPT/HCPCS: 36415; 70450; 71045; 72125; 80047; 85025; 85610; 99285